=== PATIENT | female | born 1970 | race Caucasian/White ===

== ENCOUNTER 2023-02-16 20:26 | Emergency (ER) | payer OTHER ==
[~2023-02-16] VITALS: Ht 157.5 cm; Wt 100.9 kg
--- OUTSIDE RECORDS SUMMARY | ~2023-02-16 | XMS | Continuity of Care Document ---
Demographics + + + | Address | [address] | | | [place] [address] | + + + | Preferred Language | Unknown | + + + | Marital Status | Never | + + + | Gnosticism Affiliation | Unknown | + + + | Race | White | + + + | Ethnic Group | Not or | + + + Author + + + | Author | [facility] | + + + | Organization | [facility] | + + + | Address | [address] | | | [place] [address] | + + + | Phone | | + + + Care Team Providers + + + + | Care Video Network Engineer Name | Role | Phone | + + + + Unavailable | Unavailable | + + + + Unavailable | Unavailable | + + + + Allergies No information. Encounters No information. Functional Status No information. Immunizations No information. Medications No information. Problems + + + + | date | description | facility | + + + + | 2022-07-13 00:00 | TYPE 2 DIABETES MELLITUS | [facility] | | | WITHOUT COMPLICATIONS | | + + + + | 2022-07-13 00:00 | Essential (primary) | [facility] | | | hypertension | | + + + + | 2022-07-13 00:00 | GOUT, UNSPECIFIED | [facility] | + + + + | 2022-07-13 00:00 | PAIN IN RIGHT ANKLE AND | [facility] | | | JOINTS OF RIGHT FOOT | | + + + + | 2022-07-13 00:00 | Ankle pain | [facility] | + + + + | 2022-07-13 00:00 | PAIN IN RIGHT ARM | [facility] | + + + + Procedures No information. Results/Labs No information. Social History + + + + | date | description | facility | + + + + | 2022-07-13 00:00 | Unknown if ever smoked | [facility] | + + + + Vital Signs + + + +---------+ | date | measurement | value | units | + + + +---------+ | 2022-07-13 00:00 | BMI | 43.9 | kg/m2 | + + + +---------+ | 2022-07-13 00:00 | BP_diastolic | 0 | mmHg | + + + +---------+ | 2022-07-13 00:00 | BP_systolic | 0 | mmHg | + + + +---------+ | 2022-07-13 00:00 | heart_rate | 76 | /min | + + + +---------+ | 2022-07-13 00:00 | height_metric | 157.48 | cm | + + + +---------+ | 2022-07-13 00:00 | height_standard | 62 | in | + + + +---------+ | 2022-07-13 00:00 | o2_saturation | 95 | % | + + + +---------+ | 2022-07-13 00:00 | respiration_rate | 16 | /min | + + + +---------+ | 2022-07-13 00:00 | temperature_metric | 36.67 | C | | | | | | + + + +---------+ | 2022-07-13 00:00 | | 98 | F | | | temperature_standar | | | | | d | | | + + + +---------+ | 2022-07-13 00:00 | weight_metric | 108.86 | kg | + + + +---------+ | 2022-07-13 00:00 | weight_standard | 240 | lb | + + + +---------+"
--- OUTSIDE RECORDS SUMMARY | ~2023-02-16 | XMS | Continuity of Care Document ---
Demographics + + + | Address | [address] | | | [place] [address] | + + + | Preferred Language | Unknown | + + + | Marital Status | Never | + + + | Mormonism Affiliation | Unknown | + + + | Race | White | + + + | Ethnic Group | Not or | + + + Author + + + | Author | [facility] | + + + | Organization | [facility] | + + + | Address | [address] | | | [place] [address] | + + + | Phone | | + + + Care Team Providers + + + + | Care Chief Librarian Work With Blind Name | Role | Phone | + [...] | 2022-07-13 00:00 | Ankle pain | [facility] | + + + + | 2022-07-13 00:00 | PAIN IN RIGHT ARM | [facility] | + + + + Procedures No information. Results/Labs No information. Social History + + + + | date | description | facility | + + + + | 2022-07-13 00:00 | Unknown if ever smoked | [facility] | + + + + Vital Signs [...]
[2023-02-16 21:30] VITALS: BP 156/74
== END 2023-02-16 21:30 | disposition left against medical advice (07) ==
LOC: ED 20:26
DX: R10.84 Generalized abdominal pain (principal); R11.10 Vomiting, unspecified; Z53.21 Procedure and treatment not carried out due to patient leaving prior to being seen by health care provider
CPT/HCPCS: 80053; 81003; 83690; 83735; 84703; 85025

== ENCOUNTER 2023-04-19 06:02 | Emergency (ER) | payer OTHER ==
[~2023-04-19] VITALS: Ht 157.5 cm; Wt 97.1 kg
[~2023-04-19 06:02] MED LIST: AMOX TR-K CLV1 EAC1 PO; DILT-XR120 MG PO; HYDROCHLOROTHIA25 MG PO; XARELTO20 MG PO
[2023-04-19] MEDS ORDERED: HYDROCHLOROTHIA25 MG PO (07:39)
[2023-04-19] MEDS ORDERED: XARELTO20 MG PO (07:39)
[2023-04-19] MEDS ORDERED: DILTIAZEM 24HR120 MG PO (07:39)
[2023-04-19 07:48] VITALS: BP 199/90
== END 2023-04-19 07:45 | disposition home or self-care (01) ==
LOC: ED 06:02
DX: I10 Essential (primary) hypertension (principal); Z76.0 Encounter for issue of repeat prescription; I48.91 Unspecified atrial fibrillation; E11.9 Type 2 diabetes mellitus without complications; Z88.5 Allergy status to narcotic agent; Z91.040 Latex allergy status; Z79.02 Long term (current) use of antithrombotics/antiplatelets
CPT/HCPCS: 99281

== ENCOUNTER 2023-05-22 04:50 | Emergency (ER) | payer OTHER ==
[~2023-05-22] VITALS: Ht 157.5 cm; Wt 95.3 kg
[~2023-05-22 04:50] MED LIST changes: +AMOXICILLIN500 MG PO; +DILTIAZEM 24HR120 MG PO
--- OUTSIDE RECORDS SUMMARY | 2023-05-22 05:00 | XMS ---
PreManage Notification: FRANCISCO COTTO Security Garnishment Specialist Events 1 event(s) in the past 18 months Most recent security events: Elopement at [facility] 07/13/2022 00:00 - Patient eloped before treatment completed. - Patient with suicidal and/or homicidal ideations eloped. - Patient eloped with IV in place. Details: Patient left AMA. CRITERIA MET - [facility] - 2 Visits in 30 Days [facility],, Clinic/Center: Federally Qualified 12/02/2022-[facility] ([facility]) PHONE: [phone] -Rebekah- Dentist: Rn Training [facility] PHONE: [phone] Care Guidelines exist for the following facilities: [facility] ( 06/21/2021 ) [place] VISIT COUNT (12 MO.) 6 [place] [place] [address] [place] TOTAL 10 NOTE: Visits indicate total known visits. ED/UCC VISIT TRACKING (12 MO.) 05/22/2023 04:51 [place] TYPE: Emergency COMPLAINT: - FEVER 05/02/2023 23:38 [place] [place] TYPE: Emergency COMPLAINT: - SORE THROAT DIAGNOSES: - Acute pharyngitis, unspecified - Allergy status to narcotic agent - Essential (primary) hypertension - Latex allergy status - intermediate (current) use of anticoagulants - Other terminal operations manager (current) drug therapy - Streptococcal pharyngitis - Type 2 diabetes mellitus without complications 04/19/2023 06:03 [place] [place] TYPE: Emergency COMPLAINT: - MEDICINE REFILL DIAGNOSES: - Allergy status to narcotic agent - Encounter for issue of repeat prescription - Essential (primary) hypertension - Latex allergy status - intermediate school teacher (current) use of antithrombotics/antiplatelets - Type 2 diabetes mellitus without complications - Unspecified atrial fibrillation 03/18/2023 22:06 [place] [place] TYPE: Emergency COMPLAINT: - VISION PROBLEMS 02/16/2023 20:29 [facility] [place] TYPE: Emergency COMPLAINT: - LIVER IS POKING OUT DIAGNOSES: - Essential (primary) hypertension - Generalized abdominal pain - Procedure and treatment not carried out due to patient leaving prior to being seen by health care provider - Vomiting, unspecified 10/09/2022 20:27 Jason Leav[place] [facility] TYPE: Emergency 10/04/2022 07:59 [facility] DIAGNOSES: - Diarrhea, unspecified - Dizziness and giddiness - Vomiting, unspecified 10/01/2022 19:08 Jason Leavitt [facility] TYPE: Emergency 09/16/2022 13:30 Jason BASHIR TYPE: Emergency DIAGNOSES: - Pneumonia, unspecified organism - Unspecified atrial fibrillation 07/13/2022 00:00 LIBRAD[facility] [place] TYPE: Emergency COMPLAINT: - R ANKLE PAIN DIAGNOSES: - Essential (primary) hypertension - Gout, unspecified - Pain in right ankle and joints of right foot - Pain in right arm - Type 2 diabetes mellitus without complications INPATIENT VISIT TRACKING (12 MO.) No inpatient visits to display in this time frame [id number]
[2023-05-22 05:42] LABS: BASOPHILS 0.5 % (0-2); EOSINOPHILS 0.5 % (0-6); HEMATOCRIT 42.5 % (35.0-50.0); LYMPHOCYTES 16.8 % (24-44); MCHC 33.1 g/dl (30-36); MCV 87.7 fl (81-99); MONOCYTES 9.3 % (0-12); NEUTROPHILS 72.9 % (39-80); PLATELET COUNT 276 K/uL (140-440); RBC 4.84 M/ul (4.3-5.7); RDW 15.5 (10.5-15.0)
[2023-05-22 05:45] VITALS: BP 157/90
[2023-05-22 05:54] LABS: ALBUMIN/GLOBULIN RATIO 0.73 (1.1-2.4); ANION GAP 14.9 (7-21); BILIRUBIN, TOTAL 0.3 ng/dL (0.2-1.0); CALCIUM 8.4 mg/dL (8.5-10.1); MAGNESIUM 1.8 mg/dL (1.8-2.4); POTASSIUM 2.9 mmol/L (3.5-5.1); PROTEIN, TOTAL 7.1 g/dL (6.4-8.2)
== END 2023-05-22 05:45 | disposition left against medical advice (07) ==
LOC: ED 04:50
PROVIDERS: Family Medicine
DX: R11.2 Nausea with vomiting, unspecified (principal); E11.9 Type 2 diabetes mellitus without complications; I10 Essential (primary) hypertension; Z88.5 Allergy status to narcotic agent; Z91.040 Latex allergy status; Z79.02 Long term (current) use of antithrombotics/antiplatelets; Z79.899 Other long term (current) drug therapy; Z53.29 Procedure and treatment not carried out because of patient's decision for other reasons
CPT/HCPCS: 36415; 80053; 81001; 83735; 85025; 87493; 87502; 96372; 99284; J0780; J3010; U0002

== ENCOUNTER 2023-06-05 09:06 | Emergency (ER) | payer OTHER ==
[~2023-06-05] VITALS: Ht 157.5 cm; Wt 96.6 kg
--- OUTSIDE RECORDS SUMMARY | 2023-06-05 09:12 | XMS ---
PreManage Notification: FRANCISCO COTTO Security Marine Animal Trainer Events 2 event(s) in the past 18 months Most recent security events: Elopement at [facility] 05/22/2023 04:51 - Patient eloped before treatment completed. - Patient with suicidal and/or homicidal ideations eloped. - Patient eloped with IV in place. Details: Patient left AMA Elopement at [facility] 07/13/2022 00:00 - Patient eloped before treatment completed. - Patient with suicidal and/or homicidal ideations eloped. - Patient eloped with IV in place. Details: Patient left AMA. CRITERIA MET - 6 ED Visits in 6 Months - Group Notification - [facility] - 2 Visits in 30 Days [facility],, Clinic/Center: Federally Qualified 12/02/2022-[facility] ([facility]) PHONE: [phone] -Rebekah- Dentist: Manager [facility] PHONE: [phone] Care Guidelines exist for the following facilities: [facility] ( 06/21/2021 ) [place] VISIT COUNT (12 MO.) 7 LIBRADO [place] [address] [place] TOTAL 11 NOTE: Visits indicate total known visits. ED/UCC VISIT TRACKING (12 MO.) 06/05/2023 09:07 [place] TYPE: Emergency COMPLAINT: - SKIN PROBLEM 05/22/2023 04:51 [place] [place] TYPE: Emergency COMPLAINT: - FEVER DIAGNOSES: - Allergy status to narcotic agent - Diarrhea, unspecified - Essential (primary) hypertension - Latex allergy status - termite inspector (current) use of antithrombotics/antiplatelets - Nausea with vomiting, unspecified - Other terminal make up operator (current) drug therapy - Procedure and treatment not carried out because of patient's decision for other reasons - Type 2 diabetes mellitus without complications - Unspecified abdominal pain 05/02/2023 23:38 [place] TYPE: Emergency COMPLAINT: - SORE THROAT DIAGNOSES: - Acute pharyngitis, unspecified - Allergy status to narcotic agent - Essential (primary) hypertension - Latex allergy status - detention (current) use of anticoagulants - Other custodial (current) drug therapy - Streptococcal pharyngitis - Type 2 diabetes mellitus without complications 04/19/2023 06:03 [place] TYPE: Emergency COMPLAINT: - MEDICINE REFILL DIAGNOSES: - Allergy status to narcotic agent - Encounter for issue of repeat prescription - Essential (primary) hypertension - Latex allergy status - termite inspector (current) use of antithrombotics/antiplatelets - Type 2 [...] provider - Vomiting, unspecified 10/09/2022 20:27 Jason Handley TYPE: Emergency 10/04/2022 07:59 Jason Leav[facility] TYPE: Emergency DIAGNOSES: - Diarrhea, unspecified - Dizziness and giddiness - Vomiting, unspecified 10/01/2022 19:08 Jason Leavitt [facility] TYPE: Emergency 09/16/2022 13:30 [place] TYPE: Emergency DIAGNOSES: - Pneumonia, unspecified organism [...] visits to display in this time frame [id number]
[2023-06-05] MEDS ORDERED: PREDNISONE20 MG PO (09:20)
[2023-06-05] MEDS ORDERED: FAMCICLOVIR500 MG PO (09:33)
[2023-06-05 09:42] VITALS: BP 158/81
== END 2023-06-05 09:40 | disposition home or self-care (01) ==
LOC: ED 09:06
DX: B00.1 Herpesviral vesicular dermatitis (principal); E11.9 Type 2 diabetes mellitus without complications; I10 Essential (primary) hypertension; M10.9 Gout, unspecified; Z88.5 Allergy status to narcotic agent; Z91.040 Latex allergy status; Z79.899 Other long term (current) drug therapy; Z79.52 Long term (current) use of systemic steroids
CPT/HCPCS: 99282; A9270

== ENCOUNTER 2023-08-23 18:36 | Emergency (ER) | payer OTHER ==
[~2023-08-23] VITALS: Ht 157.5 cm; Wt 103.4 kg
[~2023-08-23 18:36] MED LIST changes: +FAMCICLOVIR500 MG PO; +PREDNISONE20 MG PO
--- OUTSIDE RECORDS SUMMARY | 2023-08-23 18:44 | XMS ---
PreManage Notification: FRANCISCO COTTO Security Oil Pumper Events 3 event(s) in the past 18 months Most recent security events: Elopement at [facility] 06/23/2023 21:08 - Patient eloped with IV in place. - Patient eloped before treatment completed. - Patient with suicidal and/or homicidal ideations eloped. Details: Patient LWBS Elopement at [facility] 05/22/2023 04:51 - Patient eloped with IV in place. - Patient eloped before treatment completed. - Patient with suicidal and/or homicidal ideations eloped. Details: Patient left AMA Elopement at [facility] 07/13/2022 00:00 - Patient eloped with IV in place. - Patient eloped before treatment completed. - Patient with suicidal and/or homicidal ideations eloped. Details: Patient left AMA. CRITERIA MET - 6 ED Visits in 6 Months - Group Notification [facility],, Clinic/Center: Federally Qualified 12/02/2022-[facility] ([facility]) PHONE: [phone] -Rebekah- Dentist: Social Media Sr Strategy Manager [facility] PHONE: [phone] [facility]/Center: Rural [facility] Current \F\ [facility] PHONE: [phone] Care Guidelines exist for the following facilities: [facility] ( 06/21/2021 ) [place] VISIT COUNT (12 MO.) Destiny Batres 3 Jason Handley 1 Jason Leavitt TOTAL 12 NOTE: Visits indicate total known visits. ED/UCC VISIT TRACKING (12 MO.) 08/23/2023 18:37 [place] TYPE: Emergency COMPLAINT: - CHEST PAIN 06/23/2023 21:08 [place] TYPE: Emergency COMPLAINT: - NOSE BLEED 06/05/2023 09:07 [place] TYPE: Emergency COMPLAINT: - SKIN PROBLEM DIAGNOSES: - Allergy status to narcotic agent - Essential (primary) hypertension - Gout, unspecified - Herpesviral vesicular dermatitis - Latex allergy status - assisted (current) use of systemic steroids - Other keno terminal operator (current) drug therapy - Type 2 diabetes mellitus without complications 05/22/2023 04:51 [place] [place] TYPE: Emergency COMPLAINT: - FEVER DIAGNOSES: - Allergy status to narcotic agent - Diarrhea, unspecified - Essential (primary) hypertension - Latex allergy status - assisted (current) use of antithrombotics/antiplatelets - Nausea with vomiting, unspecified - Other fdc (current) drug therapy - Procedure and treatment not carried out because of patient's decision for other reasons - Type 2 diabetes mellitus without complications - Unspecified abdominal pain 05/02/2023 23:38 [place] [place] TYPE: Emergency COMPLAINT: - SORE THROAT DIAGNOSES: - Acute pharyngitis, unspecified - Allergy status to narcotic agent - Essential (primary) hypertension - Latex allergy status - assisted (current) use of anticoagulants - Other fdc (current) drug therapy - Streptococcal pharyngitis - Type 2 diabetes mellitus without complications 04/19/2023 06:03 [place] [place] TYPE: Emergency COMPLAINT: - MEDICINE REFILL DIAGNOSES: - Allergy status to narcotic agent - Encounter for issue of repeat prescription - Essential (primary) hypertension - Latex allergy status - assisted (current) use of antithrombotics/antiplatelets - Type 2 diabetes mellitus without complications - Unspecified atrial fibrillation 03/18/2023 22:06 [place] [place] TYPE: Emergency COMPLAINT: - VISION PROBLEMS DIAGNOSES: - Allergy status to narcotic agent - Dental caries, unspecified - Essential (primary) hypertension - Latex allergy status - intermediate card tender (current) use of anticoagulants - Other fdc (current) drug therapy - Other visual disturbances - Type 2 diabetes mellitus without complications 02/16/2023 20:29 [facility] [place] TYPE: Emergency COMPLAINT: - LIVER IS POKING OUT DIAGNOSES: - Essential (primary) hypertension - Generalized abdominal pain - Procedure and treatment not carried out due to patient leaving prior to being seen by health care provider - Vomiting, unspecified 10/09/2022 20:27 Jason Handley TYPE: Emergency 10/04/2022 07:59 Jason Leav[place] ED- [facility] TYPE: Emergency DIAGNOSES: - Diarrhea, unspecified - Dizziness and giddiness - Vomiting, unspecified 10/01/2022 19:08 Jason Leavitt ED- [facility] TYPE: Emergency 09/16/2022 13:30 Jason Jo [place] TYPE: Emergency DIAGNOSES: - Pneumonia, unspecified organism - Unspecified atrial fibrillation INPATIENT VISIT TRACKING (12 MO.) No inpatient visits to display in this time frame [id number]
[2023-08-23 19:21] LABS: BASOPHILS 0.8 % (0-2); HEMATOCRIT 39.7 % (35.0-50.0); HEMOGLOBIN 13.4 g/dL (12.0-18.0); LYMPHOCYTES 39.2 % (24-44); MCHC 33.7 g/dl (30-36); MCV 86.2 fl (81-99); MONOCYTES 4.9 % (0-12); NEUTROPHILS 53.1 % (39-80); PLATELET COUNT 292 K/uL (140-440); RBC 4.61 M/ul (4.3-5.7); RDW 15.4 (10.5-15.0)
[2023-08-23 19:32] LABS: INR 1.37 (0.80-1.30); PROTIME 16.1 Sec (11.2-14.2)
[2023-08-23 19:39] LABS: ALBUMIN 3.8 g/dL (3.4-5.0); ALBUMIN/GLOBULIN RATIO 0.84 (1.1-2.4); ANION GAP 14.7 (7-21); BILIRUBIN, TOTAL 0.3 ng/dL (0.2-1.0); BUN/CREATININE RATIO 15.53 (6.0-28.6); CALCIUM 9.2 mg/dL (8.5-10.1); CREATININE, SERUM 1.03 mg/dL (0.55-1.02); MAGNESIUM 2.1 mg/dL (1.8-2.4); POTASSIUM 2.7 mmol/L (3.5-5.1); PROTEIN, TOTAL 8.3 g/dL (6.4-8.2)
[2023-08-23 20:52] VITALS: BP 159/86
--- NOTE | 2023-08-24 15:02 | EKG ---
[facility] [address] [place] [address] Signed Sinus rhythm with marked sinus arrhythmia Otherwise normal ECG No previous ECGs available Confirmed by SANTOS RODRIGUEZ MD ([id number]) on 08/24/2023 3:01:51 PM Electronically Signed By: SANTOS RODRIGUEZ 08/24/23 1502 PATIENT NAME: FRANCISCO COTTO Electrocardiogram DATE OF : 66 PHYSICIAN: SANTOS RODRIGUEZ REPORT #: [id number] REPORT IS CONFIDENTIAL AND NOT TO BE RELEASED WITHOUT AUTHORIZATION
== END 2023-08-23 20:53 | disposition home or self-care (01) ==
LOC: ED 18:36
PROVIDERS: Emergency Medicine
DX: R07.89 Other chest pain (principal); E11.9 Type 2 diabetes mellitus without complications; I10 Essential (primary) hypertension; Z88.5 Allergy status to narcotic agent; Z91.040 Latex allergy status; Z79.02 Long term (current) use of antithrombotics/antiplatelets
CPT/HCPCS: 36415; 71045; 80053; 83735; 84484; 85025; 85379; 85610; 93005; 93010; 99285-25; A9270

== ENCOUNTER 2024-04-01 20:28 | Emergency (ER) | payer OTHER ==
[~2024-04-01] VITALS: Ht 157.5 cm; Wt 105.0 kg
[~2024-04-01 20:28] MED LIST changes: +ASPIRIN EC325 MG PO; +ATORVASTATIN CA10 MG PO; +HYDROCHLOROTHIA50 MG PO; +LOSARTAN POTASS25 MG PO; +TRAMADOL HCL50 MG PO
--- OUTSIDE RECORDS SUMMARY | 2024-04-01 20:29 | XMS ---
PreManage Notification: FRANCISCO COTTO Security Glass Beveller Events 2 event(s) in the past 18 months Most recent security events: Elopement at [facility] 06/23/2023 21:08 - Patient eloped with IV in place. - Patient eloped before treatment completed. - Patient with suicidal and/or homicidal ideations eloped. Details: Patient LWBS Elopement at [facility] 05/22/2023 04:51 - Patient eloped with IV in place. - Patient eloped before treatment completed. - Patient with suicidal and/or homicidal ideations eloped. Details: Patient left AMA CRITERIA MET - Group Notification [facility] PROVIDERS -[facility] Dentist: Chain Link Fence Installer [facility] PHONE: [phone] -Rebekah- Dentist: Chain Link Fence Installer [facility] PHONE: [phone] JOSHUA MALIN Physician Funeral Arranger Current PHONE: Unknown REBEKAH PRIMARY Clinic/Center: Primary Care [facility] PHONE: [phone] Care Guidelines exist for the following facilities: [facility] ( 06/21/2021 ) [place] VISIT COUNT (12 MO.) [address] [facility] [place] TOTAL 9 NOTE: Visits indicate total known visits. ED/UCC VISIT TRACKING (12 MO.) 04/01/2024 20:29 [place] TYPE: Emergency COMPLAINT: - URINATION PROBLEM 11/04/2023 22:11 [place] [place] TYPE: Emergency COMPLAINT: - BACK PAIN/ INJ DIAGNOSES: - Allergy status to narcotic agent - Essential (primary) hypertension - Latex allergy status - long-term (current) use of aspirin - Low back pain, unspecified - Old myocardial infarction - Other bed bug exterminator (current) drug therapy - Spondylolysis, lumbar region - Spondylosis without myelopathy or radiculopathy, lumbar region - Type 2 diabetes mellitus without complications 10/26/2023 08:17 [place] TYPE: Emergency COMPLAINT: - SINUS PAIN DIAGNOSES: - Acute nasopharyngitis [common cold] - Allergy status to narcotic agent - Essential (primary) hypertension - Fibromyalgia - Gout, unspecified - Latex allergy status - long-term (current) use of anticoagulants - Other bed bug exterminator (current) drug therapy - Other specified disorders of nose and nasal sinuses - Type 2 diabetes mellitus without complications 08/23/2023 18:[address] [facility] [place] TYPE: Emergency COMPLAINT: - CHEST PAIN DIAGNOSES: - Allergy status to narcotic agent - Chest pain, unspecified - Essential (primary) hypertension - Latex allergy status - ferry terminal agent (current) use of antithrombotics/antiplatelets - Other chest pain - Type 2 diabetes mellitus without complications 06/23/2023 21:08 [place] TYPE: Emergency COMPLAINT: - NOSE BLEED 06/05/2023 09:07 [place] TYPE: Emergency COMPLAINT: - SKIN PROBLEM DIAGNOSES: - Allergy status to narcotic agent - Essential (primary) hypertension - Gout, unspecified - Herpesviral vesicular dermatitis - Latex allergy status - ferry terminal agent (current) use of systemic steroids - Other bed bug exterminator (current) drug therapy - Type 2 diabetes mellitus without complications 05/22/2023 04:51 [place] [place] TYPE: Emergency COMPLAINT: - FEVER DIAGNOSES: - Allergy status to narcotic agent - Diarrhea, unspecified - Essential (primary) hypertension - Latex allergy status - ferry terminal agent (current) use of antithrombotics/antiplatelets - Nausea with vomiting, unspecified - Other bed bug exterminator (current) drug therapy - Procedure and treatment not carried out because of patient's decision for other reasons - Type 2 diabetes mellitus without complications - Unspecified abdominal pain 05/02/2023 23:38 [place] TYPE: Emergency COMPLAINT: - SORE THROAT DIAGNOSES: - Acute pharyngitis, unspecified - Allergy status to narcotic agent - Essential (primary) hypertension - Latex allergy status - long-term (current) use of anticoagulants - Other mcfp (current) drug therapy - Streptococcal pharyngitis - Type 2 diabetes mellitus without complications 04/19/2023 06:03 [place] TYPE: Emergency COMPLAINT: - MEDICINE REFILL DIAGNOSES: - Allergy status to narcotic agent - Encounter for issue of repeat prescription - Essential (primary) hypertension - Latex allergy status - long-term (current) use of antithrombotics/antiplatelets - Type 2 diabetes mellitus without complications - Unspecified atrial fibrillation INPATIENT VISIT TRACKING (12 MO.) No inpatient visits to display in this time frame [id number]
[2024-04-01 20:43] LABS: BILIRUBIN, URINE NEGATIVE (negative); BLOOD/HGB, URINE NEGATIVE (Negative); KETONE, URINE NEGATIVE (Negative); LEUK ESTERASE, URINE NEGATIVE (negative); NITRITE, URINE NEGATIVE (negative)
[2024-04-01] MEDS ORDERED: PYRIDIUM100 MG PO (21:03)
[2024-04-01] MEDS ORDERED: PHENAZOPYRIDINE HCL 95 MG TAB PO ONE (21:15)
[2024-04-01 21:17] VITALS: BP 162/88
== END 2024-04-01 21:17 | disposition home or self-care (01) ==
LOC: ED 20:28
PROVIDERS: Internal Medicine
DX: R30.0 Dysuria (principal); E11.9 Type 2 diabetes mellitus without complications; I10 Essential (primary) hypertension; I25.2 Old myocardial infarction; Z88.5 Allergy status to narcotic agent; Z91.040 Latex allergy status; Z79.899 Other long term (current) drug therapy; Z79.2 Long term (current) use of antibiotics; Z79.82 Long term (current) use of aspirin
CPT/HCPCS: 81003; 99283

== ENCOUNTER 2024-06-02 12:55 | Emergency (ER) | payer OTHER ==
[~2024-06-02] VITALS: Ht 157.5 cm; Wt 104.2 kg
[~2024-06-02 12:55] MED LIST changes: +FLUCONAZOLE150 MG PO; +MACROBID 100 M100 MG PO; +PYRIDIUM100 MG PO
[2024-06-02] MEDS ORDERED: LISINOPRIL20 MG PO (13:42)
--- OUTSIDE RECORDS SUMMARY | 2024-06-02 14:48 | XMS ---
PreManage Notification: FRANCISCO COTTO Security Floor Hand Events 2 event(s) in the past 18 months Most recent security events: Elopement at [facility] 06/23/2023 21:08 - Patient eloped with IV in place. - Patient eloped before treatment completed. - Patient with suicidal and/or homicidal ideations eloped. Details: Patient LWBS Elopement at [facility] 05/22/2023 04:51 - Patient eloped with IV in place. - Patient eloped before treatment completed. - Patient with suicidal and/or homicidal ideations eloped. Details: Patient left AMA CRITERIA MET - Group Notification - [facility] - 2 Visits in 30 Days CARE PROVIDERS -, [facility] Dentist: Pension Agent [facility] PHONE: [phone] -, Rebekah- Dentist: Pension Agent [facility] PHONE: [phone] JOSHUA MALIN Full Time Babysitter Current PHONE: Unknown REBEKAH PRIMARY Clinic/Center: Primary Care [facility] PHONE: [phone] Care Guidelines exist for the following facilities: [facility] ( 06/21/2021 ) [place] VISIT COUNT (12 MO.) 9 LIBRADO [place] TOTAL 9 NOTE: Visits indicate total known visits. ED/UCC VISIT TRACKING (12 MO.) 06/02/2024 12:56 [place] TYPE: Emergency COMPLAINT: - BLOOD PRESSURE PROBLEM 05/31/2024 14:24 [place] TYPE: Emergency COMPLAINT: - BLOOD IN URINE 04/23/2024 01:11 [place] [place] TYPE: Emergency COMPLAINT: - CHEST PAIN DIAGNOSES: - Allergy status to narcotic agent - Essential (primary) hypertension - Latex allergy status - snf (current) use of aspirin - Old myocardial infarction - Other termite control representative (current) drug therapy - Precordial pain - Procedure and treatment not carried out because of patient's decision for other reasons - Type 2 diabetes mellitus without complications - Urgency of urination - Urinary tract infection, site not specified 04/01/2024 20:29 [place] [place] TYPE: Emergency COMPLAINT: - URINATION PROBLEM DIAGNOSES: - Allergy status to narcotic agent - Dysuria - Essential (primary) hypertension - Latex allergy status - snf (current) use of antibiotics - snf (current) use of aspirin - Old myocardial infarction - Other mcc (current) drug therapy - Type 2 diabetes mellitus without complications 11/04/2023 22:11 [place] TYPE: Emergency COMPLAINT: - BACK PAIN/ INJ DIAGNOSES: - Allergy status to narcotic agent - Essential (primary) hypertension - Latex allergy status - snf (current) use of aspirin - Low back pain, unspecified - Old myocardial infarction - Other termite control representative (current) drug therapy - Spondylolysis, lumbar region - Spondylosis without myelopathy or radiculopathy, lumbar region - Type 2 diabetes mellitus without complications 10/26/2023 08:17 [place] [place] TYPE: Emergency COMPLAINT: - SINUS PAIN DIAGNOSES: - Acute nasopharyngitis [common cold] - Allergy status to narcotic agent - Essential (primary) hypertension - Fibromyalgia - Gout, unspecified - Latex allergy status - snf (current) use of anticoagulants - Other mcc (current) drug therapy - Other specified disorders of nose and nasal sinuses - Type 2 diabetes mellitus without complications 08/23/2023 18:37 [facility] [place] TYPE: Emergency COMPLAINT: - CHEST PAIN DIAGNOSES: - Allergy status to narcotic agent - Chest pain, unspecified - Essential (primary) hypertension - Latex allergy status - snf (current) use of antithrombotics/antiplatelets - Other chest pain - Type 2 diabetes mellitus without complications 06/23/2023 21:08 [facility] [place] TYPE: Emergency COMPLAINT: - NOSE BLEED 06/05/2023 09:07 [facility] [place] TYPE: Emergency COMPLAINT: - SKIN PROBLEM DIAGNOSES: - Allergy status to narcotic agent - Essential (primary) hypertension - Gout, unspecified - Herpesviral vesicular dermatitis - Latex allergy status - snf (current) use of systemic steroids - Other termite control representative (current) drug therapy - Type 2 diabetes mellitus without complications INPATIENT VISIT TRACKING (12 MO.) No inpatient visits to display in this time frame [id number]
[2024-06-02] MEDS ORDERED: lisinopriL 20 MG TAB PO ONE (15:15)
[2024-06-02 15:25] VITALS: BP 183/99
[2024-06-02] MEDS ORDERED: ACETAMINOPHEN 500 MG TAB PO ONE (15:30)
--- NOTE | 2024-06-03 14:41 | EKG ---
[facility] [address] [facility] [place] [address] Signed Normal sinus rhythm Normal ECG When compared with ECG of 23-APR-2024 01:18, No significant change was found Confirmed by Ignacio Carlin MD ([id number]) on 06/03/2024 2:40:47 PM Electronically Signed By: IGNACIO CARLIN DO 06/03/24 1441 PATIENT NAME: COTTOFRANCISCO REMIGIO Electrocardiogram DATE OF : 66 PHYSICIAN: IGNACIO CARLIN DO REPORT #: [id number] REPORT IS CONFIDENTIAL AND NOT TO BE RELEASED WITHOUT AUTHORIZATION
== END 2024-06-02 15:25 | disposition home or self-care (01) ==
LOC: ED 12:55
DX: I10 Essential (primary) hypertension (principal); I25.2 Old myocardial infarction; E11.9 Type 2 diabetes mellitus without complications; I48.91 Unspecified atrial fibrillation; Z79.82 Long term (current) use of aspirin; Z79.899 Other long term (current) drug therapy; Z88.5 Allergy status to narcotic agent; Z91.040 Latex allergy status
CPT/HCPCS: 93005; 93010; 99283; A9270

== ENCOUNTER 2024-06-27 13:53 | Emergency (ER) | payer OTHER ==
[~2024-06-27] VITALS: Ht 157.5 cm; Wt 105.0 kg
[~2024-06-27 13:53] MED LIST changes: +LISINOPRIL20 MG PO
[2024-06-27] MEDS ORDERED: PROTONIX20 MG PO (14:01)
[2024-06-27] MEDS ORDERED: AJOVY AUTO225 MG/1.5 SQ (14:03)
[2024-06-27] MEDS ORDERED: TRULICITY0.75 MG/0. SQ (14:03)
[2024-06-27] MEDS ORDERED: CETIRIZINE HCL10 MG PO (14:03)
--- OUTSIDE RECORDS SUMMARY | 2024-06-27 14:07 | XMS ---
PreManage Notification: FRANCISCO COTTO Security Cook Roast Events 2 event(s) in the past 18 months Most recent security events: Elopement at [facility] 06/23/2023 21:08 - Patient eloped with IV in place. - Patient eloped before treatment completed. - Patient with suicidal and/or homicidal ideations eloped. Details: Patient LWBS Elopement at [facility] 05/22/2023 04:51 - Patient eloped with IV in place. - Patient eloped before treatment completed. - Patient with suicidal and/or homicidal ideations eloped. Details: Patient left AMA CRITERIA MET - Group Notification - [facility] - 2 Visits in 30 Days CARE PROVIDERS -, [facility] Dentist: Highway Safety Engineer [facility] PHONE: [phone] -, Rebekah- Dentist: Highway Safety Engineer [facility] Dental [facility] PHONE: [phone] JOSHUA MALIN Customer Support Coordinator Current PHONE: Unknown REBEKAH PRIMARY Clinic/Center: Primary Care [facility] PHONE: [phone] Care Guidelines exist for the following facilities: [facility] ( 06/21/2021 ) [place] VISIT COUNT (12 MO.) 8 [facility] TOTAL 8 NOTE: Visits indicate total known visits. ED/UCC VISIT TRACKING (12 MO.) 06/27/2024 14:01 [facility] [place] TYPE: Emergency COMPLAINT: - ABDOMINAL PAIN 06/02/2024 12:56 [facility] [place] TYPE: Emergency COMPLAINT: - BLOOD PRESSURE PROBLEM DIAGNOSES: - Allergy status to narcotic agent - Essential (primary) hypertension - Latex allergy status - extermination inspector (current) use of aspirin - Old myocardial infarction - Other retirement (current) drug therapy - Type 2 diabetes mellitus without complications - Unspecified atrial fibrillation 05/31/2024 14:24 [facility] [place] TYPE: Emergency COMPLAINT: - BLOOD IN URINE 04/23/2024 01:11 [facility] [place] TYPE: Emergency COMPLAINT: - CHEST PAIN DIAGNOSES: - Allergy status to narcotic agent - Essential (primary) hypertension - Latex allergy status - extermination inspector (current) use of aspirin - Old myocardial infarction - Other retirement (current) drug therapy - Precordial pain - [...] (primary) hypertension - Latex allergy status - extermination inspector (current) use of antibiotics - extermination inspector (current) use of aspirin - Old myocardial infarction - Other terminal system operator (current) drug therapy - Type 2 diabetes mellitus without complications 11/04/2023 22:11 [facility] [place] TYPE: Emergency COMPLAINT: - BACK PAIN/ INJ DIAGNOSES: - Allergy status to narcotic agent - Essential (primary) hypertension - Latex allergy status - extermination inspector (current) use of aspirin - Low back pain, unspecified - Old myocardial infarction - Other terminal system operator (current) drug therapy - Spondylolysis, lumbar region - Spondylosis without myelopathy or radiculopathy, lumbar region - Type 2 diabetes mellitus without complications 10/26/2023 08:17 [facility] [place] TYPE: Emergency COMPLAINT: - SINUS PAIN DIAGNOSES: - Acute nasopharyngitis [common cold] - Allergy status to narcotic agent - Essential (primary) hypertension - Fibromyalgia - Gout, unspecified - Latex allergy status - prison (current) use of anticoagulants - Other terminal system operator (current) drug therapy - Other specified disorders of nose and nasal sinuses - Type 2 diabetes mellitus without complications 08/23/2023 18:37 [facility] [place] TYPE: Emergency COMPLAINT: - CHEST PAIN DIAGNOSES: - Allergy status to narcotic agent - Chest pain, unspecified - Essential (primary) hypertension - Latex allergy status - extermination inspector (current) use of antithrombotics/antiplatelets - Other chest pain - Type 2 diabetes mellitus without complications INPATIENT VISIT TRACKING (12 MO.) No inpatient visits to display in this time frame [id number]
[2024-06-27] MEDS ORDERED: HYDROmorphone HCL 2 MG/ML VIAL IM ONE (14:15)
[2024-06-27 14:23] LABS: ALBUMIN 3.8 g/dL (3.4-5.0); ALBUMIN/GLOBULIN RATIO 0.81 (1.1-2.4); ANION GAP 16.2 (7-21); BILIRUBIN, TOTAL 0.4 ng/dL (0.2-1.0); BUN/CREATININE RATIO 17.43 (6.0-28.6); CALCIUM 9.2 mg/dL (8.5-10.1); CREATININE, SERUM 1.09 mg/dL (0.55-1.02); POTASSIUM 4.2 mmol/L (3.5-5.1); PROTEIN, TOTAL 8.5 g/dL (6.4-8.2)
[2024-06-27 15:04] LABS: BILIRUBIN, URINE NEGATIVE (negative); BLOOD/HGB, URINE NEGATIVE (Negative); KETONE, URINE NEGATIVE (Negative); LEUK ESTERASE, URINE NEGATIVE (negative); NITRITE, URINE NEGATIVE (negative); PH, URINE 5.5 (5-7)
[2024-06-27 15:24] LABS: BASOPHILS 1.3 % (0-2); EOSINOPHILS 2.8 % (0-6); LYMPHOCYTES 33.7 % (24-44); MCH 29.5 (27-36); MCHC 33.4 g/dl (30-36); MCV 88.2 fl (81-99); MONOCYTES 7.9 % (0-12); NEUTROPHILS 54.3 % (39-80); PLATELET COUNT 331 K/uL (140-440); RBC 4.76 M/ul (4.3-5.7); RDW 14.9 (10.5-15.0)
[2024-06-27] MEDS ORDERED: ONDANSETRON 4 MG TAB ODT SL ONE (16:45)
[2024-06-27] MEDS ORDERED: PROMETHAZINE HCL 25 MG TAB PO ONE (17:00)
[2024-06-27] MEDS ORDERED: PROMETHAZINE HC25 M1 PO (18:56)
[2024-06-27] MEDS ORDERED: ONDANSETRON ODT8 MG PO (18:56)
[2024-06-27] MEDS ORDERED: PROMETHAZINE HCL 25 MG HOME.PACK PO ONE (19:00)
[2024-06-27] MEDS ORDERED: ONDANSETRON 4 MG HOME.PACK SL ONE (19:00)
[2024-06-27 19:08] VITALS: BP 155/76
== END 2024-06-27 19:09 | disposition home or self-care (01) ==
LOC: ED 13:53
PROVIDERS: Emergency Medicine
DX: R10.9 Unspecified abdominal pain (principal); E11.9 Type 2 diabetes mellitus without complications; I10 Essential (primary) hypertension; I25.2 Old myocardial infarction; Z88.2 Allergy status to sulfonamides; Z88.5 Allergy status to narcotic agent; Z79.82 Long term (current) use of aspirin; Z79.899 Other long term (current) drug therapy
CPT/HCPCS: 36415; 74176; 80053; 81003; 83690; 84703; 85025; 96372; 99284-25; A9270; J1171

== ENCOUNTER 2024-07-23 18:50 | Emergency (ER) | payer OTHER ==
[~2024-07-23] VITALS: Ht 157.5 cm; Wt 100.0 kg
[~2024-07-23 18:50] MED LIST changes: +AJOVY AUTO225 MG/1.5 SQ; +CETIRIZINE HCL10 MG PO; +ONDANSETRON ODT8 MG PO; +PROMETHAZINE HC25 M1 PO; +PROTONIX20 MG PO; +TRULICITY0.75 MG/0. SQ
--- OUTSIDE RECORDS SUMMARY | 2024-07-23 18:52 | XMS ---
PreManage Notification: FRANCISCO COTTO Security Photographic Specialist Events 2 event(s) in the past 18 months Most recent security events: Elopement at [facility] 06/23/2023 21:08 - Patient eloped with IV in place. - Patient eloped before treatment completed. - Patient with suicidal and/or homicidal ideations eloped. Details: Patient LWBS Elopement at [facility] 05/22/2023 04:51 - Patient eloped with IV in place. - Patient eloped before treatment completed. - Patient with suicidal and/or homicidal ideations eloped. Details: Patient left AMA CRITERIA MET - 6 ED Visits in 6 Months - Group Notification - [facility] - 2 Visits in 30 Days CARE PROVIDERS -, [facility] Dentist: Rip Sawyer [facility] PHONE: [phone] -Rebekah- Dentist: Rip Sawyer [facility] Dental [facility] PHONE: [phone] JOSHUA MALIN Physician Mat Cutter Current PHONE: Unknown REBEKAH PRIMARY Clinic/Center: Primary Care [facility] PHONE: [phone] Care Guidelines exist for the following facilities: [facility] ( 06/21/2021 ) [place] VISIT COUNT (12 MO.) [address] [place], [place] [address] [facility] TOTAL 10 NOTE: Visits indicate total known visits. ED/UCC VISIT TRACKING (12 MO.) 07/23/2024 18:50 [facility] [place] TYPE: Emergency COMPLAINT: - SHORTNESS OF BREATH 07/08/2024 16:33 [facility] [place] TYPE: Emergency DIAGNOSES: - Generalized abdominal pain - ABD PAIN 06/27/2024 14:01 [facility] [place] TYPE: Emergency COMPLAINT: - ABDOMINAL PAIN DIAGNOSES: - Allergy status to narcotic agent - Allergy status to sulfonamides - Dorsalgia, unspecified - Essential (primary) hypertension - [facility] (current) use of aspirin - Old myocardial infarction - Other director long term care (current) drug therapy - Type 2 diabetes mellitus without complications - Unspecified abdominal pain 06/02/2024 12:56 [facility] [place] TYPE: Emergency COMPLAINT: - BLOOD PRESSURE PROBLEM DIAGNOSES: - Allergy status to narcotic agent - Essential (primary) hypertension - Latex allergy status - director long term care (current) use of aspirin - Old myocardial infarction - Other director long term care (current) drug therapy - Type 2 diabetes mellitus without complications - Unspecified atrial fibrillation 05/31/2024 14:24 [facility] [place] TYPE: Emergency COMPLAINT: - BLOOD IN URINE 04/23/2024 01:11 [facility] [place] TYPE: Emergency COMPLAINT: - CHEST PAIN DIAGNOSES: - Allergy status to narcotic agent - Essential (primary) hypertension - Latex allergy status - [facility] (current) use of aspirin - Old myocardial infarction - Other director long term care (current) drug therapy - Precordial pain - [...] (primary) hypertension - Latex allergy status - [facility] (current) use of antibiotics - director long term care (current) use of aspirin - Old myocardial infarction - Other director long term care (current) drug therapy - Type 2 diabetes mellitus without complications 11/04/2023 22:11 [facility] [place] TYPE: Emergency COMPLAINT: - BACK PAIN/ INJ DIAGNOSES: - Allergy status to narcotic agent - Essential (primary) hypertension - Latex allergy status - director long term care (current) use of aspirin - Low back pain, unspecified - Old myocardial infarction - Other director long term care (current) drug therapy - Spondylolysis, lumbar region - Spondylosis without myelopathy or radiculopathy, lumbar region - Type 2 diabetes mellitus without complications 10/26/2023 08:17 [facility] TYPE: Emergency COMPLAINT: - SINUS PAIN DIAGNOSES: - Acute nasopharyngitis [common cold] - Allergy status to narcotic agent - Essential (primary) hypertension - Fibromyalgia - Gout, unspecified - Latex allergy status - director long term care (current) use of anticoagulants - Other nursing home (current) drug therapy - Other specified disorders of nose and nasal sinuses - Type 2 diabetes mellitus without complications 08/23/2023 18:[address] [facility] [place] TYPE: Emergency COMPLAINT: - CHEST PAIN DIAGNOSES: - Allergy status to narcotic agent - Chest pain, unspecified - Essential (primary) hypertension - Latex allergy status - [facility] (current) use of antithrombotics/antiplatelets - Other chest pain - Type 2 diabetes mellitus without complications INPATIENT VISIT TRACKING (12 MO.) No inpatient visits to display in this time frame [id number]
[2024-07-23] MEDS ORDERED: PRILOSEC OTC20 MG PO (19:09)
[2024-07-23] MEDS ORDERED: PREDNISONE20 MG PO (19:09)
[2024-07-23] MEDS ORDERED: ZITHROMAX250 MG PO (19:45)
[2024-07-23] MEDS ORDERED: AZITHROMYCIN 250 MG TAB PO ONE (19:45)
[2024-07-23] MEDS ORDERED: AMOXICILLIN/CLAVULANATE K 875 MG HOME.PACK PO ONE (19:45)
[2024-07-23] MEDS ORDERED: ALBUTEROL/IPRATROPIUM 3 ML NEB INH ONE (20:00)
[2024-07-23 20:18] VITALS: BP 116/61
--- NOTE | 2024-07-24 19:37 | EKG ---
[facility] [address] [facility] [place] [address] Signed Normal sinus rhythm Normal ECG When compared with ECG of 02-JUN-2024 15:17, No significant change was found Confirmed by Raphael Barragan MD ([id number]) on 07/24/2024 7:37:04 PM Electronically Signed By: RAPHAEL BARRAGAN MD 07/24/241936 PATIENT NAME: FRANCISCO COTTO REMIGIO Electrocardiogram DATE OF : 66 PHYSICIAN: RAPHAEL BARRAGAN MD REPORT #: [id number] REPORT IS CONFIDENTIAL AND NOT TO BE RELEASED WITHOUT AUTHORIZATION
== END 2024-07-23 20:18 | disposition home or self-care (01) ==
LOC: ED 18:50
DX: J18.9 Pneumonia, unspecified organism (principal); E11.9 Type 2 diabetes mellitus without complications; I10 Essential (primary) hypertension; I25.2 Old myocardial infarction; Z88.5 Allergy status to narcotic agent; Z91.040 Latex allergy status; Z79.899 Other long term (current) drug therapy; Z79.52 Long term (current) use of systemic steroids; Z79.82 Long term (current) use of aspirin; Z53.29 Procedure and treatment not carried out because of patient's decision for other reasons
CPT/HCPCS: 71045; 93005; 93010; 94640; 99285-25

== ENCOUNTER 2024-07-26 11:15 | Emergency (ER) | payer OTHER ==
[~2024-07-26] VITALS: Ht 157.5 cm; Wt 79.0 kg
--- NOTE | ~2024-07-26 | EKG ---
[facility] [address] [facility] [place], [place] [address] Draft EK completed, results pending confirmation PATIENT NAME: COTTOFRANCISCO Electrocardiogram DATE OF : 66 PHYSICIAN: PRELIMINARY REPORT #: [id number] REPORT IS CONFIDENTIAL AND NOT TO BE RELEASED WITHOUT AUTHORIZATION
[~2024-07-26 11:15] MED LIST changes: +PRILOSEC OTC20 MG PO; +ZITHROMAX250 MG PO
--- OUTSIDE RECORDS SUMMARY | 2024-07-26 11:20 | XMS ---
PreManage Notification: FRANCISCO COTTO Security Ultrasound Technologist Sonographer Events 2 event(s) in the past 18 [...] in 6 Months - Group Notification - [facility] - 2 Visits in 30 Days CARE PROVIDERS -, [facility] Dentist: Marketing Engineer [facility] PHONE: [phone] -Rebekah- Dentist: Marketing Engineer [facility] Dental [facility] PHONE: [phone] JOSHUA MALIN Physician Valve Grinder Current PHONE: Unknown REBEKAH PRIMARY Clinic/Center: Primary Care [facility] PHONE: [phone] Care Guidelines exist for the following facilities: [facility] ( 06/21/2021 ) [place] VISIT COUNT (12 MO.) Ilya Hernandez [facility] TOTAL 11 NOTE: Visits indicate total known visits. ED/UCC VISIT TRACKING (12 MO.) 07/26/2024 11:15 [facility] [place] TYPE: Emergency COMPLAINT: - DIFFICULTY BREATHING 07/23/2024 18:50 [facility] [place] TYPE: Emergency COMPLAINT: - SHORTNESS OF BREATH 07/08/2024 16:33 [facility] [place] TYPE: Emergency DIAGNOSES: - Generalized abdominal pain - ABD PAIN 06/27/2024 14:[address] [facility] [place] TYPE: Emergency COMPLAINT: - ABDOMINAL PAIN DIAGNOSES: - Allergy status to narcotic agent - Allergy status to sulfonamides - Dorsalgia, unspecified - Essential (primary) hypertension - senior living (current) use of aspirin - Old myocardial infarction - Other skilled nursing (current) drug therapy - Type 2 diabetes mellitus without complications - Unspecified abdominal pain 06/02/2024 12:[address] [facility] [place] TYPE: Emergency COMPLAINT: - BLOOD PRESSURE PROBLEM DIAGNOSES: - Allergy status to narcotic agent - Essential (primary) hypertension - Latex allergy status - senior living (current) use of aspirin - Old myocardial infarction - Other skilled nursing (current) drug therapy - Type 2 diabetes mellitus without complications - Unspecified atrial fibrillation 05/31/2024 14:[address] [facility] [place] TYPE: Emergency COMPLAINT: - BLOOD IN URINE 04/23/2024 01:[address] [facility] [place] TYPE: Emergency COMPLAINT: - CHEST PAIN DIAGNOSES: - Allergy status to narcotic agent - Essential (primary) hypertension - Latex allergy status - hand former helper (current) use of aspirin - Old myocardial infarction - Other internal affairs commander (current) drug therapy - Precordial pain - [...] (primary) hypertension - Latex allergy status - senior living (current) use of antibiotics - hand former helper (current) use of aspirin - Old myocardial infarction - Other internal affairs commander (current) drug therapy - Type 2 diabetes mellitus without complications 11/04/2023 22:11 [facility] [place] TYPE: Emergency COMPLAINT: - BACK PAIN/ INJ DIAGNOSES: - Allergy status to narcotic agent - Essential (primary) hypertension - Latex allergy status - senior living (current) use of aspirin - Low back pain, unspecified - Old myocardial infarction - Other internal affairs commander (current) drug therapy - Spondylolysis, lumbar region - Spondylosis without myelopathy or radiculopathy, lumbar region - Type 2 diabetes mellitus without complications 10/26/2023 08:17 [facility] [place] TYPE: Emergency COMPLAINT: - SINUS PAIN DIAGNOSES: - Acute nasopharyngitis [common cold] - Allergy status to narcotic agent - Essential (primary) hypertension - Fibromyalgia - Gout, unspecified - Latex allergy status - senior living (current) use of anticoagulants - Other internal affairs commander (current) drug therapy - Other specified disorders of nose and nasal sinuses - Type 2 diabetes mellitus without complications 08/23/2023 18:37 [facility] [place] TYPE: Emergency COMPLAINT: - CHEST PAIN DIAGNOSES: - Allergy status to narcotic agent - Chest pain, unspecified - Essential (primary) hypertension - Latex allergy status - hand former helper (current) use of antithrombotics/antiplatelets - Other chest pain - Type 2 diabetes mellitus without complications INPATIENT VISIT TRACKING (12 MO.) No inpatient visits to display in this time frame [id number]
[2024-07-26] MEDS ORDERED: BENZONATATE100 MG PO (11:25)
[2024-07-26] MEDS ORDERED: ALLERGY RELIEF10 MG PO (11:26)
[2024-07-26] MEDS ORDERED: ONDANSETRON ODT4 MG PO (11:26)
[2024-07-26] MEDS ORDERED: ALBUTEROL SULFATE 0.5% 2.5 MG/0.5 ML VIAL INH ONE (11:45)
[2024-07-26] MEDS ORDERED: methylPREDNISolone SOD SUCC 125 MG/2 ML VIAL IV ONE (11:45)
[2024-07-26] MEDS ORDERED: IPRATROPIUM BROMIDE 2.5 ML VIAL INH ONE (11:45)
[2024-07-26 12:25] LABS: BASOPHILS 0.4 % (0-2); EOSINOPHILS 0.1 % (0-6); HEMATOCRIT 38.8 % (35.0-50.0); HEMOGLOBIN 13.3 g/dL (12.0-18.0); MCH 29.6 (27-36); MCHC 34.3 g/dl (30-36); MCV 86.2 fl (81-99); MONOCYTES 3.5 % (0-12); PLATELET COUNT 319 K/uL (140-440); RDW 15.7 (10.5-15.0)
[2024-07-26 12:45] LABS: ALBUMIN 2.6 g/dL (3.4-5.0); ALBUMIN/GLOBULIN RATIO 0.5 (1.1-2.4); ANION GAP 15.5 (7-21); BILIRUBIN, TOTAL 0.2 ng/dL (0.2-1.0); BUN/CREATININE RATIO 19.41 (6.0-28.6); CALCIUM 8.8 mg/dL (8.5-10.1); CREATININE, SERUM 1.03 mg/dL (0.55-1.02); POTASSIUM 3.5 mmol/L (3.5-5.1); PROTEIN, TOTAL 7.8 g/dL (6.4-8.2)
[2024-07-26] MEDS ORDERED: OXYCODONE/APAP 5/325 TAB PO ONE (17:30)
[2024-07-26] MEDS ORDERED: PERCOCET 5-3251 EACH PO (17:33)
[2024-07-26] MEDS ORDERED: ONDANSETRON 4 MG TAB ODT SL ONE (17:45)
[2024-07-26 17:54] VITALS: BP 143/74
== END 2024-07-26 17:40 | disposition home or self-care (01) ==
LOC: ED 11:15
PROVIDERS: Emergency Medicine
DX: J18.9 Pneumonia, unspecified organism (principal); R07.89 Other chest pain; E11.9 Type 2 diabetes mellitus without complications; I10 Essential (primary) hypertension; I25.2 Old myocardial infarction; I48.91 Unspecified atrial fibrillation; M10.9 Gout, unspecified; Z88.5 Allergy status to narcotic agent; Z79.2 Long term (current) use of antibiotics; Z91.040 Latex allergy status; Z79.82 Long term (current) use of aspirin; Z79.85 Long-term (current) use of injectable non-insulin antidiabetic drugs; Z79.52 Long term (current) use of systemic steroids; Z79.899 Other long term (current) drug therapy; Z87.01 Personal history of pneumonia (recurrent)
CPT/HCPCS: 36415; 71045; 71250; 80053; 83880; 84484; 85025; 87502; 93005; 93010; 94644; 96374; 99285-25; A9270; J2919; U0002

== ENCOUNTER 2024-07-28 18:59 | Emergency (ER) | payer OTHER ==
[~2024-07-28] VITALS: Ht 157.5 cm; Wt 103.9 kg
[~2024-07-28 18:59] MED LIST changes: +ALLERGY RELIEF10 MG PO; +BENZONATATE100 MG PO; +ONDANSETRON ODT4 MG PO; +PERCOCET 5-3251 EACH PO
--- OUTSIDE RECORDS SUMMARY | 2024-07-28 19:05 | XMS ---
PreManage Notification: FRANCISCO COTTO Security Guest Service Aide Events 2 event(s) in the past 18 [...] in 6 Months - Group Notification - [facility] - 2 Visits in 30 Days CARE PROVIDERS -, [facility] Dentist: Plaster Tender [facility] PHONE: [phone] -Rebekah- Dentist: Plaster Tender [facility] Dental [facility] PHONE: [phone] JOSHUA MALIN Physician Crusher And Binder Operator Current PHONE: Unknown REBEKAH PRIMARY Clinic/Center: Primary Care [facility] PHONE: [phone] Care Guidelines exist for the following facilities: [facility] ( 06/21/2021 ) [place] VISIT COUNT (12 MO.) [address] [place], [place] [address] [facility] TOTAL 12 NOTE: Visits indicate total known visits. ED/UCC VISIT TRACKING (12 MO.) 07/28/2024 18:59 [facility] [place] TYPE: Emergency COMPLAINT: - SHORTNESS OF BREATH 07/26/2024 11:15 [facility] [place] TYPE: Emergency COMPLAINT: - DIFFICULTY BREATHING 07/23/2024 18:50 [facility] [place] TYPE: Emergency COMPLAINT: - SHORTNESS OF BREATH DIAGNOSES: - Allergy status to narcotic agent - Essential (primary) hypertension - Latex allergy status - terminal makeup operator (current) use of aspirin - terminal makeup operator (current) use of systemic steroids - Old myocardial infarction - Other long term care social worker (current) drug therapy - Pneumonia, unspecified organism - Procedure and treatment not carried out because of patient's decision for other reasons - Shortness of breath - Type 2 diabetes mellitus without complications 07/08/2024 16:33 [facility] [place] TYPE: Emergency DIAGNOSES: - Generalized abdominal pain - ABD PAIN 06/27/2024 14:01 [facility] [place] TYPE: Emergency COMPLAINT: - ABDOMINAL PAIN DIAGNOSES: - Allergy status to narcotic agent - Allergy status to sulfonamides - Dorsalgia, unspecified - Essential (primary) hypertension - terminal makeup operator (current) use of aspirin - Old myocardial infarction - Other long term care social worker (current) drug therapy - Type 2 diabetes mellitus without complications - Unspecified abdominal pain 06/02/2024 12:56 [facility] [place] TYPE: Emergency COMPLAINT: - BLOOD PRESSURE PROBLEM DIAGNOSES: - Allergy status to narcotic agent - Essential (primary) hypertension - Latex allergy status - terminal makeup operator (current) use of aspirin - Old myocardial infarction - Other senior care (current) drug therapy - Type 2 diabetes mellitus without complications - Unspecified atrial fibrillation 05/31/2024 14:24 [facility] [place] TYPE: Emergency COMPLAINT: - BLOOD IN URINE 04/23/2024 01:11 [facility] [place] TYPE: Emergency COMPLAINT: - CHEST PAIN DIAGNOSES: - Allergy status to narcotic agent - Essential (primary) hypertension - Latex allergy status - care home (current) use of aspirin - Old myocardial infarction - Other senior care (current) drug therapy - Precordial pain [...] (primary) hypertension - Latex allergy status - care home (current) use of antibiotics - care home (current) use of aspirin - Old myocardial infarction - Other long term care social worker (current) drug therapy - Type 2 diabetes mellitus without complications 11/04/2023 22:11 [facility] [place] TYPE: Emergency COMPLAINT: - BACK PAIN/ INJ DIAGNOSES: - Allergy status to narcotic agent - Essential (primary) hypertension - Latex allergy status - terminal makeup operator (current) use of aspirin - Low back pain, unspecified - Old myocardial infarction - Other long term care social worker (current) drug therapy - Spondylolysis, lumbar region - Spondylosis without myelopathy or radiculopathy, lumbar region - Type 2 diabetes mellitus without complications 10/26/2023 08:17 [facility] [place] TYPE: Emergency COMPLAINT: - SINUS PAIN DIAGNOSES: - Acute nasopharyngitis [common cold] - Allergy status to narcotic agent - Essential (primary) hypertension - Fibromyalgia - Gout, unspecified - Latex allergy status - care home (current) use of anticoagulants - Other senior care (current) drug therapy - Other specified disorders of nose and nasal sinuses - Type 2 diabetes mellitus without complications 08/23/2023 18:37 [facility] [place] TYPE: Emergency COMPLAINT: - CHEST PAIN DIAGNOSES: - Allergy status to narcotic agent - Chest pain, unspecified - Essential (primary) hypertension - Latex allergy status - terminal makeup operator (current) use of antithrombotics/antiplatelets - Other chest pain - Type 2 diabetes mellitus without complications INPATIENT VISIT TRACKING (12 MO.) No inpatient visits to display in this time frame [id number]
[2024-07-28 19:22] LABS: PH, VENOUS 7.358 (7.31-7.41)
[2024-07-28 19:28] LABS: HEMATOCRIT 38.7 % (35.0-50.0); HEMOGLOBIN 13.1 g/dL (12.0-18.0); MCH 29.6 (27-36); MCHC 33.9 g/dl (30-36); MCV 87.3 fl (81-99); PLATELET COUNT 458 K/uL (140-440); RBC 4.43 M/ul (4.3-5.7); RDW 15.7 (10.5-15.0)
[2024-07-28] MEDS ORDERED: methylPREDNISolone SOD SUCC 125 MG/2 ML VIAL IV ONE (19:30)
[2024-07-28 19:48] LABS: EOSINOPHILS, MANUAL DIFF 1; LYMPHOCYTES, MANUAL DIFF 22; MONOCYTES, MANUAL DIFF 10; NEUTROPHILS, MANUAL DIFF 67
[2024-07-28 19:51] LABS: ALBUMIN 2.7 g/dL (3.4-5.0); ALBUMIN/GLOBULIN RATIO 0.6 (1.1-2.4); ANION GAP 10.2 (7-21); BILIRUBIN, TOTAL 0.2 ng/dL (0.2-1.0); CALCIUM 8.6 mg/dL (8.5-10.1); POTASSIUM 3.2 mmol/L (3.5-5.1); PROTEIN, TOTAL 7.2 g/dL (6.4-8.2)
[2024-07-28] MEDS ORDERED: POTASSIUM CHLORIDE 10 MEQ TABCR PO ONE (20:30)
[2024-07-28] MEDS ORDERED: LORazepam 2 MG/ML VIAL IV ONE (20:30)
[2024-07-28] MEDS ORDERED: FUROSEMIDE 40 MG/4 ML VIAL IV ONE (20:30)
[2024-07-28 20:45] VITALS: BP 138/75
== END 2024-07-28 20:56 | disposition left against medical advice (07) ==
LOC: ED 18:59
PROVIDERS: Family Medicine
DX: R06.02 Shortness of breath (principal); Z53.29 Procedure and treatment not carried out because of patient's decision for other reasons; E11.9 Type 2 diabetes mellitus without complications; I10 Essential (primary) hypertension; I25.2 Old myocardial infarction; I48.91 Unspecified atrial fibrillation; Z88.5 Allergy status to narcotic agent; Z91.040 Latex allergy status; Z79.899 Other long term (current) drug therapy; Z79.82 Long term (current) use of aspirin
CPT/HCPCS: 36415; 71045; 80053; 82803; 83735; 83880; 84484; 85025; 85379; 96374; 96375; 99285-25; A9270; J1940; J2919

== ENCOUNTER 2024-08-01 08:30 | Emergency (ER) | payer OTHER ==
[~2024-08-01] VITALS: Ht 157.5 cm; Wt 103.4 kg
--- OUTSIDE RECORDS SUMMARY | 2024-08-01 08:36 | XMS ---
PreManage Notification: FRANCISCO COTTO Security Lei Seller Events 2 event(s) in the past 18 months Most recent security events: Elopement at [facility] 06/23/2023 21:08 - Patient eloped with IV in place. - Patient eloped before treatment completed. - Patient with suicidal and/or homicidal ideations eloped. Details: Patient LWBS Elopement at [facility] 05/22/2023 04:51 - Patient eloped with IV in place. - Patient eloped before treatment completed. - Patient with suicidal and/or homicidal ideations eloped. Details: Patient left AMA CRITERIA MET - 6 ED Visits in 6 Months - Group Notification - [facility] - 2 Visits in 30 Days CARE PROVIDERS -, [facility] Dentist: Cart Driver [facility] PHONE: [phone] -Rebekah- Dentist: Cart Driver [facility] Dental [facility] PHONE: [phone] JOSHUA MALIN Physician Pulverizer Feeder Current PHONE: Unknown REBEKAH PRIMARY Clinic/Center: Primary Care [facility] PHONE: [phone] Care Guidelines exist for the following facilities: [facility] ( 06/21/2021 ) [place] [facility] (12 MO.) [facility] 13 NOTE: Visits indicate total known visits. ED/UCC VISIT TRACKING (12 MO.) 08/01/2024 08:30 [facility] [place] TYPE: Emergency COMPLAINT: - SORE THROAT 07/28/2024 18:59 [facility] [place] TYPE: Emergency COMPLAINT: - SHORTNESS OF BREATH DIAGNOSES: - Allergy status to narcotic agent - Essential (primary) hypertension - Latex allergy status - parts counterman (current) use of aspirin - Old myocardial infarction - Other buttermaker helper (current) drug therapy - Procedure and treatment not carried out because of patient's decision for other reasons - Shortness of breath - Type 2 diabetes mellitus without complications - Unspecified atrial fibrillation 07/26/2024 11:15 [facility] [place] TYPE: Emergency COMPLAINT: - DIFFICULTY BREATHING DIAGNOSES: - Allergy status to narcotic agent - Essential (primary) hypertension - Gout, unspecified - Latex allergy status - parts counterman (current) use of antibiotics - parts counterman (current) use of aspirin - parts counterman (current) use of systemic steroids - Long-term (current) use of injectable non-insulin antidiabetic drugs - Old myocardial infarction - Other chest pain - Other buttermaker helper (current) drug therapy - Personal history of pneumonia (recurrent) - Pneumonia, unspecified organism - Shortness of breath - Type 2 diabetes mellitus without complications - Unspecified atrial fibrillation 07/23/2024 18:50 [facility] [place] TYPE: Emergency COMPLAINT: - SHORTNESS OF BREATH DIAGNOSES: - Allergy status to narcotic agent - Essential (primary) hypertension - Latex allergy status - parts counterman (current) use of aspirin - halfway (current) use of systemic steroids - Old myocardial infarction - Other senior care (current) drug therapy - Pneumonia, unspecified organism - Procedure and treatment not carried out because of patient's decision for other reasons - Shortness of breath - Type 2 diabetes mellitus without complications 07/08/2024 16:33 [facility] [place] TYPE: Emergency DIAGNOSES: - Generalized abdominal pain - ABD PAIN 06/27/2024 14:01 [facility] [place] TYPE: Emergency COMPLAINT: - ABDOMINAL PAIN DIAGNOSES: - Allergy status to narcotic agent - Allergy status to sulfonamides - Dorsalgia, unspecified - Essential (primary) hypertension - halfway (current) use of aspirin - Old myocardial infarction - Other senior care (current) drug therapy - Type 2 diabetes mellitus without complications - Unspecified abdominal pain 06/02/2024 12:56 [facility] [place] TYPE: Emergency COMPLAINT: - BLOOD PRESSURE PROBLEM DIAGNOSES: - Allergy status to narcotic agent - Essential (primary) hypertension - Latex allergy status - parts counterman (current) use of aspirin - Old myocardial infarction - Other buttermaker helper (current) drug therapy - Type 2 diabetes mellitus without complications - Unspecified atrial fibrillation 05/31/2024 14:24 [facility] TYPE: Emergency COMPLAINT: - BLOOD IN URINE 04/23/2024 01:11 [facility] [place] TYPE: Emergency COMPLAINT: - CHEST PAIN DIAGNOSES: - Allergy status to narcotic agent - Essential (primary) hypertension - Latex allergy status - parts counterman (current) use of aspirin - Old myocardial infarction - Other buttermaker helper (current) drug therapy - Precordial pain - [...] (primary) hypertension - Latex allergy status - halfway (current) use of antibiotics - parts counterman (current) use of aspirin - Old myocardial infarction - Other senior care (current) drug therapy - Type 2 diabetes mellitus without complications 11/04/2023 22:11 [facility] TYPE: Emergency COMPLAINT: - BACK PAIN/ INJ DIAGNOSES: - Allergy status to narcotic agent - Essential (primary) hypertension - Latex allergy status - parts counterman (current) use of aspirin - Low back pain, unspecified - Old myocardial infarction - Other senior care (current) drug therapy - Spondylolysis, lumbar region - Spondylosis without myelopathy or radiculopathy, lumbar region - Type 2 diabetes mellitus without complications 10/26/2023 08:17 [facility] [place] TYPE: Emergency COMPLAINT: - SINUS PAIN DIAGNOSES: - Acute nasopharyngitis [common cold] - Allergy status to narcotic agent - Essential (primary) hypertension - Fibromyalgia - Gout, unspecified - Latex allergy status - halfway (current) use of anticoagulants - Other senior care (current) drug therapy - Other specified disorders of nose and nasal sinuses - Type 2 diabetes mellitus without complications 08/23/2023 18:37 [facility] [place] TYPE: Emergency COMPLAINT: - CHEST PAIN DIAGNOSES: - Allergy status to narcotic agent - Chest pain, unspecified - Essential (primary) hypertension - Latex allergy status - halfway (current) use of antithrombotics/antiplatelets - Other chest pain - Type 2 diabetes mellitus without complications INPATIENT VISIT TRACKING (12 MO.) No inpatient visits to display in this time frame [id number]
[2024-08-01] MEDS ORDERED: OXYCODONE-ACET1 EAC1 PO (08:46)
[2024-08-01] MEDS ORDERED: AZITHROMYCIN250 MG PO (08:47)
[2024-08-01] MEDS ORDERED: predniSONE 20 MG TAB PO ONE (09:00)
[2024-08-01] MEDS ORDERED: ACETAMINOPHEN 500 MG TAB PO ONE (09:00)
[2024-08-01 09:55] VITALS: BP 129/84
== END 2024-08-01 09:55 | disposition home or self-care (01) ==
LOC: ED 08:30
DX: J10.1 Influenza due to other identified influenza virus with other respiratory manifestations (principal); E11.9 Type 2 diabetes mellitus without complications; I10 Essential (primary) hypertension; I25.2 Old myocardial infarction; Z88.5 Allergy status to narcotic agent; Z91.040 Latex allergy status; Z79.899 Other long term (current) drug therapy; Z79.82 Long term (current) use of aspirin; Z79.52 Long term (current) use of systemic steroids
CPT/HCPCS: 87651; 99283; A9270; J7512

== ENCOUNTER 2024-11-07 07:17 | Emergency (ER) | payer OTHER ==
[~2024-11-07] VITALS: Ht 157.5 cm; Wt 103.6 kg
[~2024-11-07 07:17] MED LIST changes: +AZITHROMYCIN250 MG PO; +OXYCODONE-ACET1 EAC1 PO
--- OUTSIDE RECORDS SUMMARY | 2024-11-07 07:24 | XMS ---
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 - Patient eloped before treatment completed. - Patient with suicidal and/or homicidal ideations eloped. Details: Patient LWBS Elopement at [facility] 05/22/2023 04:51 - Patient eloped with IV in place. - Patient eloped before treatment completed. - Patient with suicidal and/or homicidal ideations eloped. Details: Patient left AMA CRITERIA MET - 6 ED Visits in 6 Months - Group Notification CARE PROVIDERS -, [facility] Dentist: Timekeeper Supervisor [facility] PHONE: [phone] -, Rebekah- Dentist: Timekeeper Supervisor [facility] Dental [facility] PHONE: [phone] REBEKAH PRIMARY Clinic/Center: Primary Care [facility] PHONE: [phone] Care Guidelines exist for the following facilities: [facility] ( 06/21/2021 ) [place] VISIT COUNT (12 MO.) 10 [facility] TOTAL 11 NOTE: Visits indicate total known visits. ED/UCC VISIT TRACKING (12 MO.) 11/07/2024 07:[address] [facility] [place] TYPE: Emergency COMPLAINT: - FLU SYMPTOMS 08/01/2024 08:30 [facility] [place] TYPE: Emergency COMPLAINT: - SORE THROAT DIAGNOSES: - Acute pharyngitis, unspecified - Allergy status to narcotic agent - Essential (primary) hypertension - Influenza due to other identified influenza virus with other respiratory manifestations - Latex allergy status - group home (current) use of aspirin - fruit dumper (current) use of systemic steroids - Old myocardial infarction - Other long distance operator (current) drug therapy - Type 2 diabetes mellitus without complications 07/28/2024 18:59 [facility] [place] TYPE: Emergency COMPLAINT: - SHORTNESS OF BREATH DIAGNOSES: - Allergy status to narcotic agent - Essential (primary) hypertension - Latex allergy status - group home (current) use of aspirin - Old myocardial infarction - Other long distance operator (current) drug therapy - Procedure and treatment not carried out because of patient's decision for other reasons - Shortness of breath - Type 2 diabetes mellitus without complications - Unspecified atrial fibrillation 07/26/2024 11:15 [facility] [place] TYPE: Emergency COMPLAINT: - DIFFICULTY BREATHING DIAGNOSES: - Allergy status to narcotic agent - Essential (primary) hypertension - Gout, unspecified - Latex allergy status - group home (current) use of antibiotics - fruit dumper (current) use of aspirin - fruit dumper (current) use of systemic steroids - Long-term (current) use of injectable non-insulin antidiabetic drugs - Old myocardial infarction - Other chest pain - Other retirement (current) drug therapy - Personal history of pneumonia (recurrent) - Pneumonia, unspecified organism - Shortness of breath - Type 2 diabetes mellitus without complications - Unspecified atrial fibrillation 07/23/2024 18:50 [facility] [place] TYPE: Emergency COMPLAINT: - SHORTNESS OF BREATH DIAGNOSES: - Allergy status to narcotic agent - Essential (primary) hypertension - Latex allergy status - fruit dumper (current) use of aspirin - group home (current) use of systemic steroids - Old myocardial infarction - Other retirement (current) drug therapy - Pneumonia, unspecified organism - Procedure and treatment not carried out because of patient's decision for other reasons - Shortness of breath - Type 2 diabetes mellitus without complications 07/08/2024 16:33 [facility] [place] TYPE: Emergency DIAGNOSES: - Generalized abdominal pain - ABD PAIN 06/27/2024 14:01 [facility] [place] TYPE: Emergency COMPLAINT: - ABDOMINAL PAIN DIAGNOSES: - Allergy status to narcotic agent - Allergy status to sulfonamides - Dorsalgia, unspecified - Essential (primary) hypertension - fruit dumper (current) use of aspirin - Old myocardial infarction - Other retirement (current) drug therapy - Type 2 diabetes mellitus without complications - Unspecified abdominal pain 06/02/2024 12:56 [facility] [place] TYPE: Emergency COMPLAINT: - BLOOD PRESSURE PROBLEM DIAGNOSES: - Allergy status to narcotic agent - Essential (primary) hypertension - Latex allergy status - group home (current) use of aspirin - Old [...] (primary) hypertension - Latex allergy status - fruit dumper (current) use of aspirin - Old myocardial [...] (primary) hypertension - Latex allergy status - fruit dumper (current) use of antibiotics - fruit dumper (current) use of aspirin - Old myocardial infarction - Other long distance operator (current) drug therapy - Type 2 diabetes mellitus without complications INPATIENT VISIT TRACKING (12 MO.) No inpatient visits to display in this time frame [id number]
[2024-11-07] MEDS ORDERED: CEFTRIAXONE SODIUM 2 GM in SODIUM CHLORIDE 0.9% 100 ML IV ONE (07:45)
[2024-11-07] MEDS ORDERED: SODIUM CHLORIDE 0.9% 1,000 ML IV ONE (07:45)
[2024-11-07 08:06] LABS: BASOPHILS 0.6 % (0-2); EOSINOPHILS 0.7 % (0-6); HEMOGLOBIN 13.2 g/dL (12.0-18.0); LYMPHOCYTES 9.8 % (24-44); MCH 28.6 (27-36); MCHC 33.9 g/dl (30-36); MCV 84.5 fl (81-99); NEUTROPHILS 81.9 % (39-80); PLATELET COUNT 320 K/uL (140-440); RBC 4.61 M/ul (4.3-5.7); RDW 15.9 (10.5-15.0)
[2024-11-07 08:21] LABS: BILIRUBIN, URINE NEGATIVE (negative); BLOOD/HGB, URINE NEGATIVE (Negative); KETONE, URINE NEGATIVE (Negative); LEUK ESTERASE, URINE NEGATIVE (negative); NITRITE, URINE POSITIVE (negative)
[2024-11-07 08:21] LABS: ALBUMIN 3.7 g/dL (3.4-5.0); ALBUMIN/GLOBULIN RATIO 0.84 (1.1-2.4); ANION GAP 14.9 (7-21); BILIRUBIN, TOTAL 0.4 mg/dL (0.2-1.0); BUN/CREATININE RATIO 14.03 (6.0-28.6); CALCIUM 9.1 mg/dL (8.5-10.1); CREATININE, SERUM 1.14 mg/dL (0.55-1.02); POTASSIUM 3.9 mmol/L (3.5-5.1); PROTEIN, TOTAL 8.1 g/dL (6.4-8.2)
[2024-11-07 08:24] LABS: LACTIC ACID, BLOOD 1.7 mmol/L (0.4-2.0)
[2024-11-07 08:26] LABS: EPITHELIAL CELLS, URINE SQUAMOUS 1+ /lpf (0-1+)
[2024-11-07 08:27] LABS: BACTERIA, URINE 1+ /hpf (negative); CASTS, URINE NONE SEEN \\lpf; COLLECTION TYPE, URINE CLEAN CATCH; CRYSTALS, URINE NONE SEEN (0-1+); RED BLOOD CELLS, URINE 0-1 /hpf (0-5); REFLEX CULTURE, URINE No (No)
[2024-11-07] MEDS ORDERED: ACETAMINOPHEN 500 MG TAB PO ONE (09:00)
[2024-11-07 09:12] VITALS: BP 00/00
== END 2024-11-07 09:12 | disposition home or self-care (01) ==
LOC: ED 07:17
PROVIDERS: Emergency Medicine
DX: B34.9 Viral infection, unspecified (principal); E11.9 Type 2 diabetes mellitus without complications; I10 Essential (primary) hypertension; I25.2 Old myocardial infarction; I48.91 Unspecified atrial fibrillation; Z88.5 Allergy status to narcotic agent; Z91.040 Latex allergy status; Z79.85 Long-term (current) use of injectable non-insulin antidiabetic drugs; Z79.82 Long term (current) use of aspirin; Z79.52 Long term (current) use of systemic steroids; Z79.01 Long term (current) use of anticoagulants; Z79.899 Other long term (current) drug therapy
CPT/HCPCS: 36415; 71045; 80053; 81001; 83605; 85025; 87040; 87651; 99283-25; A9270

== ENCOUNTER 2024-12-27 18:59 | Emergency (ER) | payer OTHER ==
[~2024-12-27] VITALS: Ht 157.5 cm; Wt 104.1 kg
--- OUTSIDE RECORDS SUMMARY | 2024-12-27 19:06 | XMS ---
PreManage Notification: FRANCISCO COTTO Security First Aid Attendant Events No recent Security Events currently on file CRITERIA MET - 6 ED Visits in 6 Months - Group Notification CARE PROVIDERS -, [facility] Dentist: Employee Relations Manager [facility] PHONE: [phone] -Rebekah- Dentist: Employee Relations Manager [facility] Dental [facility] PHONE: [phone] REBEKAH PRIMARY Clinic/Center: Primary Care [facility] PHONE: [phone] Care Guidelines exist for the following facilities: [facility] ( 06/21/2021 ) [place] VISIT COUNT (12 MO.) 11 [facility] TOTAL 12 NOTE: Visits indicate total known visits. ED/UCC VISIT TRACKING (12 MO.) 12/27/2024 18:59 [facility] [place] TYPE: Emergency COMPLAINT: - ABDOMINAL PAIN 11/07/2024 07:18 [facility] [place] TYPE: Emergency COMPLAINT: - FLU SYMPTOMS DIAGNOSES: - Allergy status to narcotic agent - Essential (primary) hypertension - Fever, unspecified - Latex allergy status - ad terminal makeup operator (current) use of anticoagulants - care home (current) use of aspirin - ad terminal makeup operator (current) use of systemic steroids - Long-term (current) use of injectable non-insulin antidiabetic drugs - Old myocardial infarction - Other terminal gauger supervisor (current) drug therapy - Type 2 diabetes mellitus without complications - Unspecified atrial fibrillation - Viral infection, unspecified 08/01/2024 08:30 [facility] [place] TYPE: Emergency COMPLAINT: - SORE THROAT DIAGNOSES: - Acute pharyngitis, unspecified - Allergy status to narcotic agent - Essential (primary) hypertension - Influenza due to other identified influenza virus with other respiratory manifestations - Latex allergy status - ad terminal makeup operator (current) use of aspirin - care home (current) use of systemic steroids - Old myocardial infarction - Other terminal gauger supervisor (current) drug therapy - Type 2 diabetes mellitus without complications 07/28/2024 18:59 [facility] [place] TYPE: Emergency COMPLAINT: - SHORTNESS OF BREATH DIAGNOSES: - Allergy status to narcotic agent - Essential (primary) hypertension - Latex allergy status - ad terminal makeup operator (current) use of aspirin - Old myocardial infarction - Other skilled nursing (current) drug therapy - Procedure and treatment not carried out because of patient's decision for other reasons - Shortness of breath - Type 2 diabetes mellitus without complications - Unspecified atrial fibrillation 07/26/2024 11:15 [facility] [place] TYPE: Emergency COMPLAINT: - DIFFICULTY BREATHING DIAGNOSES: - Allergy status to narcotic agent - Essential (primary) hypertension - Gout, unspecified - Latex allergy status - ad terminal makeup operator (current) use of antibiotics - care home (current) use of aspirin - ad terminal makeup operator (current) use of systemic steroids - Long-term (current) use of injectable non-insulin antidiabetic drugs - Old myocardial infarction - Other chest pain - Other terminal gauger supervisor (current) drug therapy - Personal history of pneumonia (recurrent) - Pneumonia, unspecified organism - Shortness of breath - Type 2 diabetes mellitus without complications - Unspecified atrial fibrillation 07/23/2024 18:50 [facility] [place] TYPE: Emergency COMPLAINT: - SHORTNESS OF BREATH DIAGNOSES: - Allergy status to narcotic agent - Essential (primary) hypertension - Latex allergy status - care home (current) use of aspirin - ad terminal makeup operator (current) use of systemic steroids - Old myocardial infarction - Other terminal gauger supervisor (current) drug therapy - Pneumonia, unspecified organism - Procedure and treatment not carried out because of patient's decision for other reasons - Shortness of breath - Type 2 diabetes mellitus without complications 07/08/2024 16:33 [facility] [place] TYPE: Emergency DIAGNOSES: - Generalized abdominal pain - ABD PAIN 06/27/2024 14:01 [facility] [place] TYPE: Emergency COMPLAINT: - ABDOMINAL PAIN DIAGNOSES: - Allergy status to narcotic agent - Allergy status to sulfonamides - Dorsalgia, unspecified - Essential (primary) hypertension - care home (current) use of aspirin - Old myocardial infarction - Other terminal gauger supervisor (current) drug therapy - Type 2 diabetes [...] Other skilled nursing (current) drug therapy - Precordial pain - [...] (primary) hypertension - Latex allergy status - ad terminal makeup operator (current) use of antibiotics - ad terminal makeup operator (current) use of aspirin - Old myocardial infarction - Other skilled nursing (current) drug therapy - Type 2 diabetes mellitus without complications INPATIENT VISIT TRACKING (12 MO.) No inpatient visits to display in this time frame [id number]
[2024-12-27 19:52] LABS: BASOPHILS 0.4 % (0.1-1.2); EOSINOPHILS 1.8 % (0.7-5.8); HEMATOCRIT 38.8 % (34.1-44.9); HEMOGLOBIN 12.5 g/dL (11.2-15.7); LYMPHOCYTES 24.5 % (19.3-51.7); MCH 28.2 PG (25.6-32.2); MCHC 32.2 g/dL (32.2-35.5); MCV 87.4 fL (79.4-94.8); MONOCYTES 6.6 % (4.7-12.5); NEUTROPHILS 66.5 % (34.0-71.1); PLATELET COUNT 311 K/uL (182-369); RBC 4.44 M/uL (3.93-5.22)
[2024-12-27] MEDS ORDERED: ondansetron HCL 4 MG/2 ML VIAL IV ONE (20:00)
[2024-12-27] MEDS ORDERED: HYDROmorphone HCL 1 MG/ML SYR IV ONE (20:00)
[2024-12-27] MEDS ORDERED: SODIUM CHLORIDE 0.9% 1,000 ML IV ONE (20:00)
[2024-12-27 20:01] LABS: ALBUMIN 3.6 g/dL (3.4-5.0); ALBUMIN/GLOBULIN RATIO 0.86 (1.1-2.4); ANION GAP 10.8 (7-21); BILIRUBIN, TOTAL 0.4 mg/dL (0.2-1.0); BUN/CREATININE RATIO 14.39 (6.0-28.6); CALCIUM 8.9 mg/dL (8.5-10.1); CREATININE, SERUM 1.32 mg/dL (0.55-1.02); POTASSIUM 3.8 mmol/L (3.5-5.1); PROTEIN, TOTAL 7.8 g/dL (6.4-8.2)
[2024-12-27 20:29] LABS: BILIRUBIN, URINE NEGATIVE (negative); BLOOD/HGB, URINE NEGATIVE (Negative); KETONE, URINE NEGATIVE (Negative); LEUK ESTERASE, URINE NEGATIVE (negative); NITRITE, URINE NEGATIVE (negative); PH, URINE 5.5 (5-7)
[2024-12-27] MEDS ORDERED: CARAFATE1 GM PO (21:18)
[2024-12-27] MEDS ORDERED: PROTONIX40 MG PO (21:18)
[2024-12-27] MEDS ORDERED: ONDANSETRON ODT8 MG PO (21:19)
[2024-12-27] MEDS ORDERED: TRAMADOL HCL50 MG PO (21:19)
[2024-12-27] MEDS ORDERED: LIDOCAINE & ANTACID 35 ML BTL PO ONE (21:30)
[2024-12-27] MEDS ORDERED: SUCRALFATE 1 GM TAB PO ONE (21:30)
[2024-12-27] MEDS ORDERED: PANTOPRAZOLE SODIUM 40 MG/10 ML VIAL IV ONE (21:30)
[2024-12-27 21:32] VITALS: BP 123/71
== END 2024-12-27 21:30 | disposition home or self-care (01) ==
LOC: ED 18:59
PROVIDERS: Family Medicine
DX: K29.70 Gastritis, unspecified, without bleeding (principal); E11.9 Type 2 diabetes mellitus without complications; I10 Essential (primary) hypertension; E03.9 Hypothyroidism, unspecified; I25.2 Old myocardial infarction; Z79.82 Long term (current) use of aspirin; Z79.899 Other long term (current) drug therapy; Z91.040 Latex allergy status; Z88.5 Allergy status to narcotic agent
CPT/HCPCS: 36415; 74177; 80053; 81003; 83690; 85025; 96375; 99284-25; J1171; J2405; J7030; Q9967

== ENCOUNTER 2025-02-05 10:47 | Emergency (ER) | payer OTHER ==
[~2025-02-05] VITALS: Ht 157.5 cm; Wt 104.7 kg
[~2025-02-05 10:47] MED LIST changes: +CARAFATE1 GM PO; +PROTONIX40 MG PO
--- OUTSIDE RECORDS SUMMARY | 2025-02-05 10:53 | XMS ---
PreManage Notification: FRANCISCO COTTO Security Psychic Reader Events No recent Security Events currently on file CRITERIA MET - Group Notification CARE PROVIDERS JOSHUA MALIN Physician Spray Unit Feeder Current PHONE: Unknown REBEKAH PRIMARY Clinic/Center: Primary Care [facility] PHONE: [phone] Care Guidelines exist for the following facilities: [facility] ( 06/21/2021 ) [place] VISIT COUNT (12 MO.) [address] [facility] [address] [facility] TOTAL 13 NOTE: Visits indicate total known visits. ED/UCC VISIT TRACKING (12 MO.) 02/05/2025 10:[address] [facility] [address] [facility] [place] TYPE: Emergency COMPLAINT: - FLANK PAIN BOTH SIDES, NAUSEA, DIZZY 12/27/2024 18:[address] [facility] [address] [facility] [place] TYPE: Emergency COMPLAINT: - ABDOMINAL PAIN DIAGNOSES: - Allergy status to narcotic agent - Essential (primary) hypertension - Gastritis, unspecified, without bleeding - Hypothyroidism, unspecified - Latex allergy status - [facility] (current) use of aspirin - Old myocardial infarction - Other senior care (current) drug therapy - Type 2 diabetes mellitus without complications - Upper abdominal pain, unspecified 11/07/2024 07:18 [facility] [place] TYPE: Emergency COMPLAINT: - FLU SYMPTOMS DIAGNOSES: - Allergy status to narcotic agent - Essential (primary) hypertension - Fever, unspecified - Latex allergy status - [facility] (current) use of anticoagulants - [facility] (current) use of aspirin - [facility] (current) use of systemic steroids - Long-term (current) use of injectable non-insulin antidiabetic drugs - Old myocardial infarction - Other roasterman (current) drug therapy - Type 2 diabetes mellitus without complications - Unspecified atrial fibrillation - Viral infection, unspecified 08/01/2024 08:30 [facility] [place] TYPE: Emergency COMPLAINT: - SORE THROAT DIAGNOSES: - Acute pharyngitis, unspecified - Allergy status to narcotic agent - Essential (primary) hypertension - Influenza due to other identified influenza virus with other respiratory manifestations - Latex allergy status - [facility] (current) use of aspirin - buttermaker (current) use of systemic steroids - Old myocardial infarction - Other senior care (current) drug therapy - Type 2 diabetes mellitus without complications 07/28/2024 18:59 [facility] [place] TYPE: Emergency COMPLAINT: - SHORTNESS OF BREATH DIAGNOSES: - Allergy status to narcotic agent - Essential (primary) hypertension - Latex allergy status - buttermaker (current) use of aspirin - Old myocardial infarction - Other senior care (current) drug therapy - Procedure and treatment not carried out because of patient's decision for other reasons - Shortness of breath - Type 2 diabetes mellitus without complications - Unspecified atrial fibrillation 07/26/2024 11:15 [facility] [place] TYPE: Emergency COMPLAINT: - DIFFICULTY BREATHING DIAGNOSES: - Allergy status to narcotic agent - Essential (primary) hypertension - Gout, unspecified - Latex allergy status - buttermaker (current) use of antibiotics - buttermaker (current) use of aspirin - [facility] (current) use of systemic steroids - Long-term (current) use of injectable non-insulin antidiabetic drugs - Old myocardial infarction - Other chest pain - Other senior care (current) drug therapy - Personal history of pneumonia (recurrent) - Pneumonia, unspecified organism - Shortness of breath - Type 2 diabetes mellitus without complications - Unspecified atrial fibrillation 07/23/2024 18:50 [facility] [place] TYPE: Emergency COMPLAINT: - SHORTNESS OF BREATH DIAGNOSES: - Allergy status to narcotic agent - Essential (primary) hypertension - Latex allergy status - buttermaker (current) use of aspirin - MCC (current) use of systemic steroids - Old myocardial infarction - Other senior care (current) drug therapy - Pneumonia, unspecified organism - Procedure and treatment not carried out because of patient's decision for other reasons - Shortness of breath - Type 2 diabetes mellitus without complications 07/08/2024 16:33 [facility] [place] TYPE: Emergency DIAGNOSES: - Generalized abdominal pain - ABD PAIN 06/27/2024 14:01 [facility] [place] TYPE: Emergency COMPLAINT: - ABDOMINAL PAIN DIAGNOSES: - Allergy status to narcotic agent - Allergy status to sulfonamides - Dorsalgia, unspecified - Essential (primary) hypertension - MCC (current) use of aspirin - Old myocardial infarction - Other senior care (current) drug therapy - Type 2 diabetes mellitus without complications - Unspecified abdominal pain 06/02/2024 12:56 [facility] [place] TYPE: Emergency COMPLAINT: - BLOOD PRESSURE PROBLEM DIAGNOSES: - Allergy status to narcotic agent - Essential (primary) hypertension - Latex allergy status - buttermaker (current) use of aspirin - Old myocardial infarction - Other roasterman (current) drug therapy - Type 2 diabetes mellitus without complications - Unspecified atrial fibrillation 05/31/2024 14:24 [facility] [place] TYPE: Emergency COMPLAINT: - BLOOD IN URINE 04/23/2024 01:11 [facility] [place] TYPE: Emergency COMPLAINT: - CHEST PAIN DIAGNOSES: - Allergy status to narcotic agent - Essential (primary) hypertension - Latex allergy status - [facility] (current) use of aspirin - Old myocardial infarction - Other roasterman (current) drug therapy - Precordial pain - [...] (primary) hypertension - Latex allergy status - [facility] (current) use of antibiotics - [facility] (current) use of aspirin - Old myocardial infarction - Other senior care (current) drug therapy - Type 2 diabetes mellitus without complications INPATIENT VISIT TRACKING (12 MO.) No inpatient visits to display in this time frame [id number]
[2025-02-05] MEDS ORDERED: ELIQUIS5 MG PO (11:06)
[2025-02-05 11:38] VITALS: BP 138/68
== END 2025-02-05 11:38 | disposition left against medical advice (07) ==
LOC: ED 10:47
DX: M54.50 Low back pain, unspecified (principal); E11.9 Type 2 diabetes mellitus without complications; I10 Essential (primary) hypertension; I25.2 Old myocardial infarction; I48.91 Unspecified atrial fibrillation; Z91.040 Latex allergy status; Z88.5 Allergy status to narcotic agent; Z79.2 Long term (current) use of antibiotics; Z79.899 Other long term (current) drug therapy; Z53.29 Procedure and treatment not carried out because of patient's decision for other reasons
CPT/HCPCS: 80053; 83690; 85025; 99283

== ENCOUNTER 2025-03-19 21:07 | Emergency (ER) | payer OTHER ==
[~2025-03-19] VITALS: Ht 157.5 cm; Wt 109.8 kg
[~2025-03-19 21:07] MED LIST changes: +ELIQUIS5 MG PO
--- OUTSIDE RECORDS SUMMARY | 2025-03-19 21:11 | XMS ---
PreManage Notification: FRANCISCO COTTO [employer] Developer Events No recent Security Events currently on file CRITERIA MET - Group Notification CARE PROVIDERS -, [facility] Dentist: Inker Caro [facility] PHONE: [phone] JOSHUA MALIN Physician Current PHONE: Unknown [facility]: [facility] PHONE: [phone] Care Guidelines exist for the following facilities: [facility] ( 06/21/2021 ) [place] VISIT COUNT (12 MO.) 13 [facility] TOTAL 14 NOTE: Visits indicate total known visits. ED/UCC VISIT TRACKING (12 MO.) 03/19/2025 21:08 [facility] [place] TYPE: Emergency COMPLAINT: - BODY SWELLING 02/05/2025 10:48 [facility] [place] TYPE: Emergency COMPLAINT: - FLANK PAIN BOTH SIDES, NAUSEA, DIZZY DIAGNOSES: - Allergy status to narcotic agent - Essential (primary) hypertension - Latex allergy status - exterminator helper termite (current) use of antibiotics - Low back pain, unspecified - Old myocardial infarction - Other intermediate (current) drug therapy - Procedure and treatment not carried out because of patient's decision for other reasons - Type 2 diabetes mellitus without complications - Unspecified atrial fibrillation 12/27/2024 18:59 [facility] [place] TYPE: Emergency COMPLAINT: - ABDOMINAL PAIN DIAGNOSES: - Allergy status to narcotic agent - Essential (primary) hypertension - Gastritis, unspecified, without bleeding - Hypothyroidism, unspecified - Latex allergy status - longterm (current) use of aspirin - Old myocardial infarction - Other predatory animal exterminator (current) drug therapy - Type 2 diabetes mellitus without complications - Upper abdominal pain, unspecified 11/07/2024 07:18 [facility] [place] [place] TYPE: Emergency COMPLAINT: - FLU SYMPTOMS DIAGNOSES: - Allergy status to narcotic agent - Essential (primary) hypertension - Fever, unspecified - Latex allergy status - exterminator helper termite (current) use of anticoagulants - longterm (current) use of aspirin - longterm (current) use of systemic steroids - Long-term (current) use of injectable non-insulin antidiabetic drugs - Old myocardial infarction - Other predatory animal exterminator (current) drug therapy - Type 2 diabetes mellitus without complications - Unspecified atrial fibrillation - Viral infection, unspecified 08/01/2024 08:[address] [facility] [place] TYPE: Emergency COMPLAINT: - SORE THROAT DIAGNOSES: - Acute pharyngitis, unspecified - Allergy status to narcotic agent - Essential (primary) hypertension - Influenza due to other identified influenza virus with other respiratory manifestations - Latex allergy status - longterm (current) use of aspirin - longterm (current) use of systemic steroids - Old myocardial infarction - Other predatory animal exterminator (current) drug therapy - Type 2 diabetes mellitus without complications 07/28/2024 18:[address] [facility] [place] TYPE: Emergency COMPLAINT: - SHORTNESS OF BREATH DIAGNOSES: - Allergy status to narcotic agent - Essential (primary) hypertension - Latex allergy status - longterm (current) use of aspirin - Old myocardial infarction - Other predatory animal exterminator (current) drug therapy - Procedure and treatment not carried out because of patient's decision for other reasons - Shortness of breath - Type 2 diabetes mellitus without complications - Unspecified atrial fibrillation 07/26/2024 11:15 [facility] [place] TYPE: Emergency COMPLAINT: - DIFFICULTY BREATHING DIAGNOSES: - Allergy status to narcotic agent - Essential (primary) hypertension - Gout, unspecified - Latex allergy status - exterminator helper termite (current) use of antibiotics - exterminator helper termite (current) use of aspirin - exterminator helper termite (current) use of systemic steroids - Long-term (current) use of injectable non-insulin antidiabetic drugs - Old myocardial infarction - Other chest pain - Other predatory animal exterminator (current) drug therapy - Personal history of pneumonia (recurrent) - Pneumonia, unspecified organism - Shortness of breath - Type 2 diabetes mellitus without complications - Unspecified atrial fibrillation 07/23/2024 18:[address] [facility] [place] TYPE: Emergency COMPLAINT: - SHORTNESS OF BREATH DIAGNOSES: - Allergy status to narcotic agent - Essential (primary) hypertension - Latex allergy status - longterm (current) use of aspirin - longterm (current) use of systemic steroids - Old myocardial infarction - Other intermediate (current) drug therapy - Pneumonia, unspecified organism - Procedure and treatment not carried out because of patient's decision for other reasons - Shortness of breath - Type 2 diabetes mellitus without complications 07/08/2024 16:33 [facility] [place] TYPE: Emergency DIAGNOSES: - Generalized abdominal pain - ABD PAIN 06/27/2024 14:[address] [facility] [place] TYPE: Emergency COMPLAINT: - ABDOMINAL PAIN DIAGNOSES: - Allergy status to narcotic agent - Allergy status to sulfonamides - Dorsalgia, unspecified - Essential (primary) hypertension - exterminator helper termite (current) use of aspirin - Old myocardial infarction - Other predatory animal exterminator (current) drug therapy - Type 2 diabetes mellitus without complications - Unspecified abdominal pain 06/02/2024 12:[address] [facility] [place] TYPE: Emergency COMPLAINT: - BLOOD PRESSURE PROBLEM DIAGNOSES: - Allergy status to narcotic agent - Essential (primary) hypertension - Latex allergy status - exterminator helper termite (current) use of aspirin - Old myocardial infarction - Other predatory animal exterminator (current) drug therapy - Type 2 diabetes mellitus without complications - Unspecified atrial fibrillation 05/31/2024 14:[address] [facility] [place] TYPE: Emergency COMPLAINT: - BLOOD IN URINE 04/23/2024 01:11 [facility] [place] TYPE: Emergency COMPLAINT: - CHEST PAIN DIAGNOSES: - Allergy status to narcotic agent - Essential (primary) hypertension - Latex allergy status - longterm (current) use of aspirin - Old myocardial infarction - Other predatory animal exterminator (current) drug therapy - Precordial pain - [...] (primary) hypertension - Latex allergy status - longterm (current) use of antibiotics - exterminator helper termite (current) use of aspirin - Old myocardial infarction - Other predatory animal exterminator (current) drug therapy - Type 2 diabetes mellitus without complications INPATIENT VISIT TRACKING (12 MO.) No inpatient visits to display in this time frame [email or web address]
[2025-03-19] MEDS ORDERED: PANTOPRAZOLE SO40 MG PO ×2 (21:23→23:20)
[2025-03-19 23:07] LABS: MCH 28.3 PG (25.6-32.2); MCHC 31.7 g/dL (32.2-35.5); MCV 89.5 fL (79.4-94.8); RBC 3.81 M/uL (3.93-5.22)
[2025-03-19] MEDS ORDERED: HYDROCHLOROTHIA50 MG PO (23:20)
[2025-03-19] MEDS ORDERED: ELIQUIS5 MG PO (23:20)
[2025-03-19] MEDS ORDERED: DILT-XR120 MG PO (23:20)
[2025-03-19] MEDS ORDERED: ALLERGY RELIEF10 MG PO (23:20)
[2025-03-19] MEDS ORDERED: LISINOPRIL20 MG PO (23:20)
[2025-03-19 23:28] LABS: ALT (SGPT) 35.0 U/L (14-59); AST (SGOT) 18.0 U/L (15-37); EOSINOPHILS, MANUAL DIFF 4; GLOMERULAR FILTRATION RATE,EST 69.0 mL/min (>60); LYMPHOCYTES, MANUAL DIFF 37; MONOCYTES, MANUAL DIFF 6; NEUTROPHILS, MANUAL DIFF 53; PROTEIN, TOTAL 7.4 g/dL (6.4-8.2); UREA NITROGEN 19.0 mg/dL (7-18)
[2025-03-19] MEDS ORDERED: FUROSEMIDE 40 MG TAB PO ONE (23:45)
[2025-03-19 23:47] VITALS: BP 143/75
== END 2025-03-19 23:46 | disposition home or self-care (01) ==
LOC: ED 21:07
PROVIDERS: Family Medicine
DX: R60.0 Localized edema (principal); E11.9 Type 2 diabetes mellitus without complications; I11.0 Hypertensive heart disease with heart failure; I50.30 Unspecified diastolic (congestive) heart failure; I25.2 Old myocardial infarction; Z91.040 Latex allergy status; Z88.5 Allergy status to narcotic agent; Z79.01 Long term (current) use of anticoagulants; Z79.899 Other long term (current) drug therapy
CPT/HCPCS: 36415; 71045; 80053; 83735; 83880; 85025; 99283-25